=== PATIENT | male | born 1960 | race Caucasian/White ===

== ENCOUNTER 2016-05-06 14:09 | Inpatient (IN) | payer OTHER ==
[~2016-05-06] VITALS: Ht 185.4 cm; Wt 112.0 kg
[~2016-05-06 14:09] MED LIST: Z.0.NO CURRENT MEDS
[2016-05-06 14:12] VITALS: BP 168/90; PULSE 59; RESP 14; TEMP 98.2; O2SAT 98
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
--- NOTE | 2016-05-06 15:37 | RADRPT ---
EXAM DATE/TIME: 05/06/2016 15:26 [facility] COMPARISON: CHEST SINGLE AP, February 23, 2012, 0:11. INDICATIONS : Chest pain. MEDICAL HISTORY : None. SURGICAL HISTORY : None. ENCOUNTER: Initial ACUITY: 1 day PAIN SCORE: 2/10 LOCATION: Bilateral chest FINDINGS: A single view of the chest demonstrates the lungs to be symmetrically aerated with faint patchy asymm etric density airspace disease in the left upper lobe relative to the right CONCLUSION: There is faint airspace disease possibly infiltrate left upper lobe. Peewee Tinsley MD on May 06, 2016 at 15:35 Board Certified Radiologist. This report was verified electronically.
[2016-05-06 15:38] LABS: AUTOMATED NEUTROPHIL # 7.1 TH/MM3 (1.8-7.7); BASOPHIL # 0.1 TH/MM3 (0-0.2); BASOPHIL % 0.6 % (0.0-2.0); EOSINOPHIL # 0.2 TH/MM3 (0-0.4); EOSINOPHIL % 1.5 % (0.0-4.0); HEMATOCRIT 45.8 % (39.0-51.0); HEMO FLAGS DIFF FINAL; LYMPH % 23.1 % (9.0-44.0); LYMPHOCYTE # 2.5 TH/MM3 (1.0-4.8); MEAN CELL VOLUME 87.2 FL (80.0-100.0); MEAN CORPUSCULAR HEMOGLOBIN 29.6 PG (27.0-34.0); MEAN CORPUSCULAR HGB CONC 33.9 % (32.0-36.0); MONO % 8.6 % (0.0-8.0); NEUT % 66.2 % (16.0-70.0); PLATELET COUNT 243 TH/MM3 (150-450); RED BLOOD COUNT 5.25 MIL/MM3 (4.50-5.90); RED CELL DISTRIBUTION WIDTH 12.6 % (11.6-17.2); WHITE BLOOD COUNT 10.7 TH/MM3 (4.0-11.0)
[2016-05-06 15:43] LABS: APTT (PATIENT) 26.3 SEC (24.3-30.1); PROTHROMBIN TIME - PATIENT 10.7 SEC (9.8-11.6)
[2016-05-06 15:57] LABS: ANION GAP 6 MEQ/L (5-15); BICARBONATE 28.8 MEQ/L (21.0-32.0); BLOOD UREA NITROGEN 15 MG/DL (7-18); CHLORIDE 102 MEQ/L (98-107); GLOMERULAR FILTRATION RATE 74 ML/MIN (>89); MAGNESIUM 2.4 MG/DL (1.5-2.5); POTASSIUM 4.2 MEQ/L (3.5-5.1); SODIUM (NA) 137 MEQ/L (136-145)
--- NOTE | 2016-05-06 15:58 | EKG ---
Date Performed: 05/06/2016 Time Performed: 14:47:49 PTAGE: 55 years EKG: Sinus rhythm NORMAL ECG NO PREVIOUS TRACING DOCTOR: Jake Schmidt Interpretating Date/Time 05/06/2016 15:57:13
[2016-05-06 16:00] LABS: CREATINE KINASE 125 U/L (39-308)
[2016-05-06 16:13] LABS: CKMB 1.8 NG/ML (0.5-3.6)
[2016-05-06 19:38] LABS: CREATINE KINASE 117 U/L (39-308)
[2016-05-06] MEDS ORDERED: ENOXAPARIN SODIUM 120 MG/0.8 ML SYRINGE SQ ONE (19:45)
[2016-05-06 19:50] LABS: CKMB 1.5 NG/ML (0.5-3.6)
[2016-05-06] MEDS ORDERED: SODIUM CHLORIDE 0.9% FLUSH 5 ML FLUSH FLUSH PRN (21:00)
[2016-05-06] MEDS: SODIUM CHLORIDE 0.9% FLUSH 5 ML FLUSH FLUSH SCH (21:00)
[2016-05-06] MEDS ORDERED: NALOXONE HCL 0.4 MG/ML AMP IV PRN (21:00)
[2016-05-06 21:02] VITALS: BP 131/81; PULSE 19; RESP 16; O2SAT 98
--- NOTE | 2016-05-06 21:20 | PD ---
Data Data Last Documented VS Vital Signs Date Time Temp Pulse Resp B/P Pulse Ox O2 Delivery O2 Flow Rate FiO2 05/06/16 19:28 54 05/06/16 14:12 98.2 14 168/90 98 Room Air Orders Electrocardiogram (05/06/16 14:52) Basic Metabolic Panel (Bmp) (05/06/16 14:52) Ckmb (Isoenzyme) Profile (05/06/16 14:52) Complete Blood Count With Diff (05/06/16 14:52) Magnesium (Mg) (05/06/16 14:52) Prothrombin Time / Inr (Pt) (05/06/16 14:52) Act Partial Throm Time (Ptt) (05/06/16 14:52) Troponin I (05/06/16 14:52) Lipase (05/06/16 14:52) Chest, Single Ap (05/06/16 14:52) CKMB (05/06/16 15:01) CKMB% (05/06/16 15:01) Electrocardiogram (05/06/16 18:25) Ckmb (Isoenzyme) Profile (05/06/16 18:25) Troponin I (05/06/16 18:25) CKMB (05/06/16 18:51) CKMB% (05/06/16 18:51) Enoxaparin Inj (Lovenox Inj) (05/06/16 19:45) Admit Order (Ed Use Only) (05/06/16 20:51) Admit To Inpatient (05/06/16 ) Vital Signs (Adult) Q4H (05/06/16 20:51) Activity Oob With Assistance (05/06/16 20:51) Tacking Stitch Remover / Telemetry .CONTINUOUS (05/06/16 20:51) Sodium Chloride 0.9% Flush (Ns Flush) (05/06/16 21:00) Sodium Chloride 0.9% Flush (Ns Flush) (05/06/16 21:00) Creatine Kinase (Cpk) (05/07/16 01:00) Creatine Kinase (Cpk) (05/07/16 07:00) Troponin I (05/07/16 01:00) Troponin I (05/07/16 07:00) Electrocardiogram (05/07/16 01:00) Electrocardiogram (05/07/16 07:00) Naloxone Inj (Narcan Inj) (05/06/16 21:00) Inpatient Certification (05/06/16 ) Labs Laboratory Tests Test 05/06/16 05/06/16 15:01 18:51 White Blood Count 10.7 TH/MM3 Red Blood Count 5.25 MIL/MM3 Hemoglobin 15.5 GM/DL Hematocrit 45.8 % Mean Corpuscular Volume 87.2 FL Mean Corpuscular Hemoglobin 29.6 PG Mean Corpuscular Hemoglobin 33.9 % Concent Red Cell Distribution Width 12.6 % Platelet Count 243 TH/MM3 Mean Platelet Volume 7.9 FL Neutrophils (%) (Auto) 66.2 % Lymphocytes (%) (Auto) 23.1 % Monocytes (%) (Auto) 8.6 % Eosinophils (%) (Auto) 1.5 % Basophils (%) (Auto) 0.6 % Neutrophils # (Auto) 7.1 TH/MM3 Lymphocytes # (Auto) 2.5 TH/MM3 Monocytes # (Auto) 0.9 TH/MM3 Eosinophils # (Auto) 0.2 TH/MM3 Basophils # (Auto) 0.1 TH/MM3 CBC Comment DIFF FINAL Differential Comment Prothrombin Time 10.7 SEC Prothromb Time International 1.0 RATIO Ratio Activated Partial 26.3 SEC Thromboplast Time Sodium Level 137 MEQ/L Potassium Level 4.2 MEQ/L Chloride Level 102 MEQ/L Carbon Dioxide Level 28.8 MEQ/L Anion Gap 6 MEQ/L Blood Urea Nitrogen 15 MG/DL Creatinine 1.05 MG/DL Estimat Glomerular Filtration 74 ML/MIN Rate Random Glucose 86 MG/DL Calcium Level 9.4 MG/DL Magnesium Level 2.4 MG/DL Total Creatine Kinase 125 U/L 117 U/L Creatine Kinase MB 1.8 NG/ML 1.5 NG/ML Troponin I 0.02 NG/ML 0.10 NG/ML Lipase 209 U/L [facility] Medical Record Reviewed: Yes Supervised Visit with NAHOMI: Yes Narrative Course I, Dr. Whitney, have reviewed the advance practice practitioner's documentation and am in agreement, met with the patient face to face, made the diagnosis, and the medical decision making was done by me. *My assessment and Findings: The patient has had exertional chest pain with some radiation to the jaw for a few days now. He took aspirin at home. He has a family history of coronary artery disease. CBC & BMP Diagram 1/24/17 15:01 Troponin is 0.10 EKG reveals a sinus rhythm of 71 with normal axis and intervals no sign of acute ischemia the patient will be admitted to the hospitalist service. Discussed with Dr. Valdes. David ordered here. No pain at rest or at time of admission. Diagnosis Primary Impression: Chest pain Qualified Code: R07.9 - Chest pain, unspecified type Additional Impression: Elevated troponin I level Admitting Information Admitting Physician Requests: Observation Scripts No Active Prescriptions or Reported Meds Condition: Stable Jann Whitney MD May 06, 2016 21:19
[2016-05-06 23:30] VITALS: BP 124/94; PULSE 57; RESP 16; O2SAT 94
[2016-05-07] VITALS (10 sets, daily range): BP systolic 113–158; BP diastolic 57–86; PULSE 51–74; RESP 16–19; TEMP 97.4–98.2; O2SAT 94–99
--- NOTE | 2016-05-07 05:44 | EKG ---
Date Performed: 05/06/2016 Time Performed: 18:58:38 PTAGE: 55 years EKG: BASELINE ARTIFACT PRESENT. SINUS BRADYCARDIA POSSIBLE RIGHT VENTRICULAR CONDUCTION DELAY MARIKA RDERLINE ECG NO SIGNIFICANT CHANGE FROM PRIOR ELECTROCARDIOGRAM. PREVIOUS TRACING : 05/06/2016 14.47 DOCTOR: Jake Schmidt Interpretating Date/Time 05/07/2016 05:42:07
[2016-05-07] MEDS: ASPIRIN EC 325 MG TABEC PO SCH (08:06)
[2016-05-07] MEDS: SODIUM CHLORIDE 0.9% FLUSH 5 ML FLUSH FLUSH SCH ×2 (08:07→21:16)
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
[2016-05-07] MEDS ORDERED: NITROGLYCERIN 0.4 MG SL 25 TABS/BTL SL PRN (12:15)
[2016-05-07] MEDS ORDERED: ACETAMINOPHEN 325 MG TAB PO PRN (12:15)
[2016-05-07] MEDS ORDERED: LORazepam 2 MG/ML VIAL IV PUSH PRN ×4 (12:15→13:00)
[2016-05-07] MEDS ORDERED: HALOPERIDOL LACTATE 5 MG/ML AMP IM PRN (12:15)
[2016-05-07] MEDS ORDERED: MORPHINE SULFATE 4 MG/ML INJ IV PRN (12:15)
[2016-05-07] MEDS ORDERED: DOCUSATE SODIUM 100 MG CAP PO PRN (12:15)
[2016-05-07] MEDS ORDERED: ACETAMINOPHEN/HYDROcodone 325 MG/5 MG TAB PO PRN (12:15)
[2016-05-07] MEDS ORDERED: ONDANSETRON HCL 4 MG/2 ML VIAL IVP PRN (12:15)
[2016-05-07] MEDS ORDERED: LORazepam 2 MG TAB PO PRN (12:15)
[2016-05-07] MEDS ORDERED: LORazepam 1 MG TAB PO PRN (13:00)
[2016-05-07] MEDS ORDERED: FLUMAZENIL 0.5 MG/5 ML VIAL IV PUSH PRN (13:00)
--- NOTE | 2016-05-07 14:17 | EKG ---
Date Performed: 05/07/2016 Time Performed: 06:20:58 PTAGE: 55 years EKG: SINUS BRADYCARDIA WITH SINUS ARRHYTHMIA BORDERLINE ECG PREVIOUS TRACING : 05/07/2016 01.16 Since previous tracing, no significant change noted DOCTOR: Vineet Sharma Interpretating Date/Time 05/07/2016 14:16:52
--- NOTE | 2016-05-07 14:18 | EKG ---
Date Performed: 05/07/2016 Time Performed: 01:16:17 PTAGE: 55 years EKG: SINUS BRADYCARDIA BORDERLINE ECG PREVIOUS TRACING : 05/06/2016 18.58 Since previous tracing, no significant change noted DOCTOR: Vineet Sharma Interpretating Date/Time 05/07/2016 14:17:35
[2016-05-07] MEDS ORDERED: ENOXAPARIN SODIUM 40 MG/0.4 ML SYRINGE SQ SCH (20:00)
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
[2016-05-08] VITALS (10 sets, daily range): BP systolic 134–140; BP diastolic 75–94; PULSE 67–86; RESP 18–20; TEMP 96–97.8; O2SAT 96–98
[2016-05-08] MEDS: SODIUM CHLORIDE 0.9% FLUSH 5 ML FLUSH FLUSH SCH ×2 (09:00→19:57)
[2016-05-08] MEDS ORDERED: REGADENOSON INJ 0.4 MG/5 ML SYR ONE (09:46)
[2016-05-08] MEDS: ASPIRIN EC 325 MG TABEC PO SCH (11:00)
[2016-05-08] MEDS: MULTIVITAMINS/MINERALS THERAPEUTIC TAB PO SCH (11:01)
[2016-05-08] MEDS: FOLIC ACID 1 MG TAB PO SCH (11:01)
[2016-05-08] MEDS: THIAMINE HCL 100 MG TAB PO SCH (11:01)
--- NOTE | 2016-05-08 11:24 | HHI.PR ---
Subjective Remarks Follow-up for chest pain. SO at bedside. The patient denies any further chest pains overnight, but did report that he had a twinge of chest discomfort during the stress test today. Some shortness of breath with previous episodes of chest pain, none today or overnight. Awaiting stress test results at this time. Objective Vitals Vital Signs Date Time Temp Pulse Resp B/P Pulse Ox O2 Delivery O2 Flow Rate FiO2 05/08/16 08:02 96.0 71 18 134/79 98 05/08/16 08:00 70 05/08/16 04:48 97.8 75 18 139/88 96 05/08/16 00:22 97.8 86 18 140/75 97 05/07/16 20:00 74 05/07/16 19:03 97.6 54 18 142/85 97 05/07/16 15:50 98.0 53 19 123/73 94 05/07/16 11:58 97.4 57 16 127/74 98 I/O 05/07/16 05/07/16 05/07/16 05/08/16 05/08/16 05/08/16 07:00 15:00 23:00 07:00 15:00 23:00 Intake Total 10 ml Balance 10 ml Intake Oral 10 ml # Voids 2 1 Result Diagram: 05/06/16 1501 05/06/16 1501 Imaging Last Impressions Chest X-Ray 05/06/16 1452 Signed Impressions: Service Date/Time: Friday, May 06, 2016 15:26 - CONCLUSION: There is faint airspace disease possibly infiltrate left upper lobe. Peewee Tinsley MD Objective Remarks GENERAL: Well-developed well-nourished. In no acute distress. SKIN: Warm and dry. No lesions noted. HEENT: Normocephalic. Pupils equal and round. Mucous membranes pink and moist. CARDIOVASCULAR: Regular rate and rhythm. No murmur appreciated. RESPIRATORY: No accessory muscle use. Clear to auscultation. Breath sounds equal bilaterally. GASTROINTESTINAL: Abdomen soft, non-tender, nondistended. Bowel sounds x4. MUSCULOSKELETAL: No obvious deformities. No clubbing or cyanosis. No edema. NEUROLOGICAL: Awake and alert. No focal neurological deficits. Moves upper and lower extremities spontaneously. Normal speech. PSYCHIATRIC: Appropriate mood and affect; insight and judgment normal. A/P Problem List: (1) Chest pain ICD Code: R07.9 Status: Acute (2) Elevated troponin I level ICD Code: R79.89 Status: Acute Assessment and Plan 55-year-old male with no significant past medical history, cigar smoker, marijuana use, and alcohol use, does not follow with a PCP, presents with ongoing intermittent chest pains over the past 1.5 years, worse over the past 2 weeks. Chest Pain, Elevated Troponins, NSTEMI: Troponins trended 0.02, 0.10, 0.04, 0.02. EKG without acute ST-T changes. S/p full strength Lovenox in the ED. Started on aspirin 325mg daily. Nitro prn and IV Morphine prn. O2 prn. Cannot initiate Beta Guy due to bradycardia. Check Lipid Panel. Consulted cardiology, ordered stress test, results pending. Discussed with Dr. Baltazar, catheterization later today if indicated. Tobacco Use: Cessation counseling. Patient smokes 1 cigar daily but can go multiple days without. Avoid nicotine secondary to vasoconstriction. Alcohol Use: Cessation counseling. Continue thiamine/folate/MV. CIWA protocol. Marijuana Use: counseled on cessation. DVT Prophylaxis: teds/SCDs Discharge Planning Disposition pending clinical course. Problem Qualifiers (1) Chest pain: Qualified Code: R07.9 - Chest pain, unspecified type Wilver Kerr May 08, 2016 11:24 Gabbie Snider MD May 08, 2016 15:52
--- NOTE | 2016-05-08 11:29 | RADRPT ---
EXAM DATE/TIME: 05/08/2016 08:49 [facility] COMPARISON: No previous studies available for comparison. INDICATIONS : Mid chest pain radiating to the jaw for two weeks. Coronary artery disease. DOSE: 29.8 mCi Tc99m Myoview at stress. 10 mCi Tc99m Myoview at rest. 0.4 mg Lexiscan STRESS SYMPTOMS: Headache, flush, abdominal cramps and sweating. EJECTION FRACTION: 58% MEDICAL HISTORY : Hypertension. SURGICAL HISTORY : Appendectomy. ENCOUNTER: Initial ACUITY: 2 weeks PAIN SCALE: 5/10 LOCATION: Midsternal chest TECHNIQUE: The patient underwent pharmacologic stress with infusion of prescribed dose. Continuous ECG tracing was monitored during stress. Gated SPECT imaging was performed after stress and conventional SPECT i maging was performed at rest. The examination was performed on a SPECT/CT scanner, both attenuation and non-corrected datasets were reviewed. FINDINGS: DISTRIBUTION: The maximum perfused segment at stress is in the anterolateral wall. PERFUSION STUDY: The pattern of perfusion at stress shows 20-30% redistribution in the inferoseptal distribution warren rning for ischemia. GATED STUDY: There is intact wall motion and thickening without hypokinetic or dyskinetic segments. CONCLUSION: 1. Scintigraphic findings concerning for inferoseptal ischemia extending into the apex. Assuming righ t coronary dominance, findings would be characteristic of a high-grade RCA lesion. 2. Adequate wall motion throughout with an estimated ejection fraction of 58%. RISK CATEGORY: Intermediate (1-3% Annual Mortality Rate) Alexander Beatty MD on May 08, 2016 at 11:23 Board Certified Radiologist. This report was verified electronically.
--- NOTE | 2016-05-08 11:46 | PD.CARD.PN ---
Subjective Subjective Remarks No chest pain over night, no shortness of breath Objective Medications Current Medications Medications (Trade) Dose Ordered Sig/Mariana Route Start Time Stop Time Status Last Admin (NS Flush) 2 ml UNSCH PRN FLUSH 05/06/16 21:00 (NS Flush) 2 ml BID FLUSH 05/06/16 21:00 05/08/16 09:00 (Narcan Inj) 0.4 mg UNSCH PRN IV 05/06/16 21:00 (Ecotrin Ec) 325 mg DAILY PO 05/07/16 09:00 05/08/16 11:00 (Nitrostat Sl) 0.4 mg Q5M PRN SL 05/07/16 12:15 (Zofran Inj) 4 mg Q6H PRN IVP 05/07/16 12:15 (Colace) 100 mg Q12H PRN PO 05/07/16 12:15 (Tylenol) 650 mg Q6H PRN PO 05/07/16 12:15 ([place] 5-325 Mg) 1 tab Q4H PRN PO 05/07/16 12:15 (Morphine Inj) 2 mg Q3H PRN IV 05/07/16 12:15 (Folate) 1 mg DAILY PO 05/08/16 09:00 05/13/16 08:59 05/08/16 11:01 (Vitamin B1) 100 mg DAILY PO 05/08/16 09:00 05/08/16 11:01 (Theragran M Tab) 1 tab DAILY PO 05/08/16 09:00 05/13/16 08:59 05/08/16 11:01 (Ativan) 1 mg Q4H PRN PO 05/07/16 13:00 (Ativan Inj) 1 mg Q4H PRN IV PUSH 05/07/16 13:00 (Ativan) 2 mg Q2H PRN PO 05/07/16 12:15 (Ativan Inj) 2 mg Q2H PRN IV PUSH 05/07/16 12:15 (Ativan Inj) 2 mg Q1H PRN IV PUSH 05/07/16 12:15 (Ativan Inj) 2 mg Q15M PRN IV PUSH 05/07/16 12:15 (Haldol Inj) 2 mg Q15M PRN IM 05/07/16 12:15 (Lovenox Inj) 40 mg Q24H SQ 05/07/16 20:00 05/07/16 21:16 Vital Signs / I&O Vital Signs Date Time Temp Pulse Resp B/P Pulse Ox O2 Delivery O2 Flow Rate FiO2 05/08/16 08:02 96.0 71 18 134/79 98 05/08/16 08:00 70 05/08/16 04:48 97.8 75 18 139/88 96 05/08/16 00:22 97.8 86 18 140/75 97 05/07/16 20:00 74 05/07/16 19:03 97.6 54 18 142/85 97 05/07/16 15:50 98.0 53 19 123/73 94 05/07/16 11:58 97.4 57 16 127/74 98 I/O 05/07/16 05/07/16 05/07/16 05/08/16 05/08/16 05/08/16 07:00 15:00 23:00 07:00 15:00 23:00 Intake Total 10 ml Balance 10 ml Intake Oral 10 ml # Voids 2 1 Physical Exam GENERAL: NAD SKIN: Warm and dry. HEAD: Atraumatic. Normocephalic. EYES: Pupils equal and round. No scleral icterus. No injection or drainage. ENT: No nasal bleeding or discharge. Mucous membranes pink and moist. NECK: Trachea midline. No JVD. CARDIOVASCULAR: Regular rate and rhythm. RESPIRATORY: No accessory muscle use. Clear to auscultation. Breath sounds equal bilaterally. GASTROINTESTINAL: Abdomen soft, non-tender, nondistended. Hepatic and splenic margins not palpable. MUSCULOSKELETAL: Extremities without clubbing, cyanosis, or edema. No obvious deformities. NEUROLOGICAL: Awake and alert. No obvious cranial nerve deficits. Motor grossly within normal limits. Five out of 5 muscle strength in the arms and legs. Normal speech. PSYCHIATRIC: Appropriate mood and affect; insight and judgment normal. Laboratory Current Medications Medications (Trade) Dose Ordered Sig/Mariana Route Start Time Stop Time Status Last Admin (Narcan Inj) 0.4 mg UNSCH PRN IV 05/06/16 21:00 (Ecotrin Ec) 325 mg DAILY PO 05/07/16 09:00 05/08/16 11:00 (Nitrostat Sl) 0.4 mg Q5M PRN SL 05/07/16 12:15 (Zofran Inj) 4 mg Q6H PRN IVP 05/07/16 12:15 (Colace) 100 mg Q12H PRN PO 05/07/16 12:15 (Tylenol) 650 mg Q6H PRN PO 05/07/16 12:15 ([place] 5-325 Mg) 1 tab Q4H PRN PO 05/07/16 12:15 (Morphine Inj) 2 mg Q3H PRN IV 05/07/16 12:15 (Folate) 1 mg DAILY PO 05/08/16 09:00 05/13/16 08:59 05/08/16 11:01 (Vitamin B1) 100 mg DAILY PO 05/08/16 09:00 05/08/16 11:01 (Theragran M Tab) 1 tab DAILY PO 05/08/16 09:00 05/13/16 08:59 05/08/16 11:01 (Ativan) 1 mg Q4H PRN PO 05/07/16 13:00 (Ativan Inj) 1 mg Q4H PRN IV PUSH 05/07/16 13:00 (Ativan) 2 mg Q2H PRN PO 05/07/16 12:15 (Ativan Inj) 2 mg Q2H PRN IV PUSH 05/07/16 12:15 (Ativan Inj) 2 mg Q1H PRN IV PUSH 05/07/16 12:15 (Ativan Inj) 2 mg Q15M PRN IV PUSH 05/07/16 12:15 (Haldol Inj) 2 mg Q15M PRN IM 05/07/16 12:15 (Lovenox Inj) 40 mg Q24H SQ 05/07/16 20:00 05/07/16 21:16 Assessment and Plan Problem List: (1) Elevated troponin I level (2) Chest pain Assessment and Plan 1) Minimally elevated troponin, chest pain 2) Abnormal stress test with inferior ischemia, for cardiac catheterization today Problem Qualifiers (1) Chest pain: Qualified Code: R07.9 - Chest pain, unspecified type Greg Whitney DO May 08, 2016 11:45
[2016-05-08] MEDS ORDERED: HEPARIN-NS/PF INJ 500 ML ONE ×2 (13:03→13:55)
[2016-05-08] MEDS ORDERED: HEPARIN SODIUM - IV 10,000 UNITS/10 ML VIAL ONE (13:04)
[2016-05-08] MEDS ORDERED: NITROGLYCERIN INJ 5 ML ONE (13:04)
[2016-05-08] MEDS ORDERED: VERAPAMIL HCL 5 MG/2 ML VIAL ONE (13:04)
[2016-05-08] MEDS ORDERED: MIDAZOLAM HCL 2 MG/2 ML VIAL ONE ×2 (13:09→14:33)
[2016-05-08] MEDS ORDERED: IOHEXOL 350 MG/ML 100 ML BTL (for Cath Lab) OTHER ONE (13:22)
[2016-05-08] MEDS ORDERED: TICAGRELOR 90 MG TAB PO ONE (14:59)
[2016-05-08] MEDS ORDERED: SODIUM CHLORIDE 0.9% FLUSH 5 ML FLUSH IVF PRN (15:30)
[2016-05-08] MEDS ORDERED: ACETAMINOPHEN 325 MG TAB PO PRN (15:30)
[2016-05-08] MEDS ORDERED: MISC INFORMATION XX ONE (15:30)
[2016-05-08] MEDS ORDERED: oxyCODONE/ACETAMINOPHEN 5 MG/325 MG TAB PO PRN (15:30)
--- NOTE | 2016-05-08 16:01 | HHI.PR ---
Subjective Remarks Seen briefly in the morning going to stress test Seen again after cath today in DOCU Patient is in nad. Says she doesn't have any chest pain. No n/v/d/c. Objective Vitals Vital Signs Date Time Temp Pulse Resp B/P Pulse Ox O2 Delivery O2 Flow Rate FiO2 05/08/16 11:41 97.8 71 20 140/88 97 05/08/16 08:02 96.0 71 18 134/79 98 05/08/16 08:00 70 05/08/16 04:48 97.8 75 18 139/88 96 05/08/16 00:22 97.8 86 18 140/75 97 05/07/16 20:00 74 05/07/16 19:03 97.6 54 18 142/85 97 I/O 05/07/16 05/07/16 05/07/16 05/08/16 05/08/16 05/08/16 07:00 15:00 23:00 07:00 15:00 23:00 Intake Total 10 ml Balance 10 ml Intake Oral 10 ml # Voids 2 1 Result Diagram: 05/06/16 1501 05/06/16 1501 Imaging Last Impressions Myocardial Perfusion Scan Nuc Med 05/08/16 0000 Signed Impressions: Service Date/Time: April 08:49 - CONCLUSION: 1. Scintigraphic findings concerning for inferoseptal ischemia extending into the apex. Assuming right coronary dominance, findings would be characteristic of a high-grade RCA lesion. 2. Adequate wall motion throughout with an estimated ejection fraction of 58%%. RISK CATEGORY: Intermediate (1-3%% Annual Mortality Rate) Alexander Beatty MD Chest X-Ray 05/06/16 1452 Signed Impressions: Service Date/Time: Friday, May 06, 2016 15:26 - CONCLUSION: There is faint airspace disease possibly infiltrate left upper lobe. Peewee Tinsley MD Objective Remarks GENERAL: Well-developed well-nourished. In no acute distress. SKIN: Warm and dry. No lesions noted. HEENT: Normocephalic. Pupils equal and round. Mucous membranes pink and moist. CARDIOVASCULAR: Regular rate and rhythm. No murmur appreciated. RESPIRATORY: No accessory muscle use. Clear to auscultation. Breath sounds equal bilaterally. GASTROINTESTINAL: Abdomen soft, non-tender, nondistended. Bowel sounds x4. MUSCULOSKELETAL: Right wrist. No obvious deformities. No clubbing or cyanosis. No edema. NEUROLOGICAL: Awake and alert. No focal neurological deficits. Moves upper and lower extremities spontaneously. Normal speech. PSYCHIATRIC: Appropriate mood and affect; insight and judgment normal. A/P Problem List: (1) Chest pain ICD Code: R07.9 Status: Acute (2) Elevated troponin I level ICD Code: R79.89 Status: Acute Assessment and Plan 55-year-old male with no significant past medical history, cigar smoker, marijuana use, and alcohol use, does not follow with a PCP, presents with ongoing intermittent chest pains over the past 1.5 years, worse over the past 2 weeks. Chest Pain, Elevated Troponins, NSTEMI: Troponins trended 0.02, 0.10, 0.04, 0.02. EKG without acute ST-T changes. S/p full strength Lovenox in the ED. Started on aspirin 325mg daily. Nitro prn and IV Morphine prn. O2 prn. Cannot initiate Beta Guy due to bradycardia. Check Lipid Panel. Consulted cardiology, patient had abnormal stress test and went for cath today. Discussed with Dr. Baltazar says he had 2 lesions with 2 stents placed, op report pending. Patient needs ASA and brillinta. Tobacco Use: Cessation counseling. Patient smokes 1 cigar daily but can go multiple days without. Avoid nicotine secondary to vasoconstriction. Alcohol Use: Cessation counseling. Continue thiamine/folate/MV. CIWA protocol. Marijuana Use: counseled on cessation. DVT Prophylaxis: teds/SCDs Discharge Planning Poss DC tomorrow if stable. Discussed with the patient, significant other at bedside, nurse, Dr Way cardiology, Wilver HARDWICK Problem Qualifiers (1) Chest pain: Qualified Code: R07.9 - Chest pain, unspecified type Gabbie Snider MD May 08, 2016 16:01
--- NOTE | 2016-05-08 17:17 | EC ---
Study Study Date:05/08/2016 STUDY CONCLUSIONS SUMMARY - Left ventricle: The cavity size was normal. Wall thickness was normal. Systolic function was normal. The estimated ejection fraction was in the range of 55% to 60%. Wall motion was normal; there were no regional wall motion abnormalities. - Aortic valve: Valve area: 2.46cm^2 (Vmax). - Tricuspid valve: Mild regurgitation. If LV function is below 40, please consider prescribing an ACEI or ARB or document rationale for non-use. PROCEDURE DATA STUDY STATUS: Elective. Procedure: Transthoracic echocardiography. Image quality was good. Scanning was performed from the parasternal, apical, and subcostal acoustic windows. Study completion: The patient tolerated the procedure well. Transthoracic echocardiography. M-mode, complete 2D, complete spectral Doppler, and color Doppler. Height: Height: 73in. Weight: Weight: 245.5lb. Body mass index: BMI: 32.5kg/m^2. Body surface area: BSA: 2.35m^2. Patient status: Inpatient. CARDIAC ANATOMY LEFT VENTRICLE: The cavity size was normal. Wall thickness was normal. Systolic function was normal. The estimated ejection fraction was in the range of 55% to 60%. Wall motion was normal; there were no regional wall motion abnormalities. AORTIC VALVE: Trileaflet; normal thickness leaflets. Doppler: Transvalvular velocity was within the normal range. There was no stenosis. No regurgitation. Valve area: 2.46cm^2 (Vmax). Indexed valve area: 1.05cm^2/m^2 (Vmax). AORTA: Aortic root: The aortic root was normal in size. MITRAL VALVE: Structurally normal valve. Doppler: Transvalvular velocity was within the normal range. There was no evidence for stenosis. No regurgitation. LEFT ATRIUM: The atrium was normal in size. RIGHT VENTRICLE: The cavity size was normal. Wall thickness was normal. PULMONIC VALVE: Doppler: Transvalvular velocity was within the normal range. There was no evidence for stenosis. No regurgitation. TRICUSPID VALVE: Structurally normal valve. Doppler: Transvalvular velocity was within the normal range. Mild regurgitation. PULMONARY ARTERY: The main pulmonary artery was normal-sized. Systolic pressure was within the normal range. RIGHT ATRIUM: The atrium was normal in size. PERICARDIUM: There was no pericardial effusion. SYSTEMIC VEINS: Inferior vena cava: The vessel was normal in size. Patient weight: 245.5lb _Ejection fraction:_ 65-75% _Fractional shortening:_ 32% up to 5Kg 5-11.5Kg 11.6-22.9Kg 23-45Kg 45-57Kg Aortic Root 7-13 <17 13-22 17-27 17-27 LA diam 6-13 <23 24-38 33-47 37-40 RVID 10-17 7-15 7-15 7-18 8-17 LVIDd 12-22 <32 24-38 33-47 37-40 LVPW 2-4 3-6 5-7 6-8 7-8 IVS 2-4 3-6 5-7 6-8 7-8 BASIC MEASUREMENTS ADULT NORMAL Left ventricle LV internal dimension, ED, chordal *37.3 mm 43-52 level, PLAX LV internal dimension, ES, chordal 28.6 mm 23-38 level, PLAX Fractional shortening, chordal level, *23 % >29 PLAX LV posterior wall thickness, ED 8.99 mm IVS/LVPW ratio, ED 0.97 <1.3 Ventricular septum Septal thickness, ED 8.7 mm Aortic valve Leaflet separation 20 mm 15-26 BASIC MEASUREMENTS ADULT NORMAL Aortic valve Leaflet separation 20 mm 15-26 Aorta Root diameter, ED 26 mm 20-37 Left atrium Anterior-posterior dimension, ES 39 mm 19-40 Anterior-posterior dimension index, ES 1.66 cm/m^2 <2.2 LA/aortic root ratio 1.5 DOPPLER MEASUREMENTS ADULT NORMAL Main pulmonary artery Pressure, S 19 mm Hg =30 Aortic valve Peak velocity, S 77.4 cm/s Valve area, Vmax 2.46 cm^2 Valve area index, Vmax 1.05 cm^2/m^2 Mitral valve Peak E-wave velocity 47.4 cm/s Peak A-wave velocity 66.6 cm/s Deceleration time 201 ms 150-230 Peak E/A ratio 0.7 Tricuspid valve Regurgitant peak velocity 170 cm/s Peak RV-RA gradient, S 12 mm Hg Maximal regurgitant velocity 170 cm/s Systemic veins Estimated CVP 10 mm Hg Right ventricle RV pressure, S 22 mm Hg <30 Pulmonic valve Peak velocity, S 85.5 cm/s LEGEND: Mean values are shown as u=mean value. Asterisk (*) smyth values outside specified normal range. Prepared and signed by Estuardo Ackerman [id number]
[2016-05-08] MEDS: SODIUM CHLORIDE 0.9% FLUSH 5 ML FLUSH IVF SCH (19:58)
[2016-05-08] MEDS: TICAGRELOR 90 MG TAB PO SCH (20:07)
[2016-05-09] VITALS (7 sets, daily range): BP systolic 134–144; BP diastolic 77–99; PULSE 51–70; RESP 17; TEMP 97.7; O2SAT 96–99
[2016-05-09 06:46] LABS: AUTOMATED NEUTROPHIL # 5.3 TH/MM3 (1.8-7.7); BASOPHIL % 0.5 % (0.0-2.0); EOSINOPHIL # 0.2 TH/MM3 (0-0.4); EOSINOPHIL % 2.5 % (0.0-4.0); HEMATOCRIT 43.2 % (39.0-51.0); HEMO FLAGS DIFF FINAL; LYMPH % 23.6 % (9.0-44.0); MEAN CELL VOLUME 87.3 FL (80.0-100.0); MEAN CORPUSCULAR HEMOGLOBIN 29.9 PG (27.0-34.0); MEAN CORPUSCULAR HGB CONC 34.3 % (32.0-36.0); MONO % 11.8 % (0.0-8.0); NEUT % 61.6 % (16.0-70.0); PLATELET COUNT 205 TH/MM3 (150-450); RED BLOOD COUNT 4.95 MIL/MM3 (4.50-5.90); RED CELL DISTRIBUTION WIDTH 12.9 % (11.6-17.2); WHITE BLOOD COUNT 8.5 TH/MM3 (4.0-11.0)
--- NOTE | 2016-05-09 08:32 | HHI.PR ---
Subjective Remarks Feels much better. No chest pain or sob. No n/v/d/c. Objective Vitals Vital Signs Date Time Temp Pulse Resp B/P Pulse Ox O2 Delivery O2 Flow Rate FiO2 05/09/16 07:00 70 05/09/16 04:28 63 144/99 96 05/09/16 04:00 51 05/09/16 03:00 58 05/09/16 01:00 57 05/09/16 00:00 97.7 69 142/77 98 05/08/16 23:00 69 05/08/16 22:00 76 05/08/16 21:00 72 05/08/16 20:00 77 05/08/16 20:00 67 140/94 97 05/08/16 19:00 67 05/08/16 11:41 97.8 71 20 140/88 97 I/O 05/08/16 05/08/16 05/08/16 05/09/16 05/09/16 05/09/16 07:00 15:00 23:00 07:00 15:00 23:00 Intake Total 240 ml Balance 240 ml Intake Oral 240 ml # Voids 1 4 Result Diagram: 05/09/16 0523 05/06/16 1501 Imaging Last Impressions Myocardial Perfusion Scan Nuc Med 05/08/16 0000 Signed Impressions: Service Date/Time: April 08:49 - CONCLUSION: 1. Scintigraphic findings concerning for inferoseptal ischemia extending into the apex. Assuming right coronary dominance, findings would be characteristic of a high-grade RCA lesion. 2. Adequate wall motion throughout with an estimated ejection fraction of 58%%. RISK CATEGORY: Intermediate (1-3%% Annual Mortality Rate) Alexander Beatty MD Chest X-Ray 05/06/16 1452 Signed Impressions: Service Date/Time: Friday, May 06, 2016 15:26 - CONCLUSION: There is faint airspace disease possibly infiltrate left upper lobe. Peewee Tinsley MD Objective Remarks GENERAL: Well-developed well-nourished. In no acute distress. SKIN: Warm and dry. No lesions noted. HEENT: Normocephalic. Pupils equal and round. Mucous membranes pink and moist. CARDIOVASCULAR: Regular rate and rhythm. No murmur appreciated. RESPIRATORY: No accessory muscle use. Clear to auscultation. Breath sounds equal bilaterally. GASTROINTESTINAL: Abdomen soft, non-tender, nondistended. Bowel sounds x4. MUSCULOSKELETAL: Right wrist. No obvious deformities. No clubbing or cyanosis. No edema. NEUROLOGICAL: Awake and alert. No focal neurological deficits. Moves upper and lower extremities spontaneously. Normal speech. PSYCHIATRIC: Appropriate mood and affect; insight and judgment normal. A/P Problem List: (1) Chest pain ICD Code: R07.9 Status: Acute (2) Elevated troponin I level ICD Code: R79.89 Status: Acute Assessment and Plan 55-year-old male with no significant past medical history, cigar smoker, marijuana use, and alcohol use, does not follow with a PCP, presents with ongoing intermittent chest pains over the past 1.5 years, worse over the past 2 weeks. Chest Pain, Elevated Troponins, NSTEMI: Troponins trended 0.02, 0.10, 0.04, 0.02. EKG without acute ST-T changes. S/p full strength Lovenox in the ED. Started on aspirin 325mg daily. Nitro prn and IV Morphine prn. O2 prn. Cannot initiate Beta Guy due to bradycardia. Check Lipid Panel. Consulted cardiology, patient had abnormal stress test and went for cath today. Discussed with Dr. Baltazar says he had 2 lesions with 2 stents placed, op report pending. Patient needs ASA and brillinta. 2D ECHO with EF of 55-60% Tobacco Use: Cessation counseling. Patient smokes 1 cigar daily but can go multiple days without. Avoid nicotine secondary to vasoconstriction. Alcohol Use: Cessation counseling. Continue thiamine/folate/MV. CIWA protocol. Marijuana Use: counseled on cessation. DVT Prophylaxis: teds/SCDs Discharge Planning Poss DC tomorrow if stable. Discussed with the patient, significant other at bedside, nurse, Dr Way cardiology Seen by Dr Way cardiology cleared the patient for DC Problem Qualifiers (1) Chest pain: Qualified Code: R07.9 - Chest pain, unspecified type Gabbie Snider MD May 09, 2016 08:32
--- NOTE | 2016-05-09 08:32 | HHI.DS ---
Discharge Summary Admission Date May 06, 2016 at 20:53 Discharge Date: May 09, 2016 Admitting Diagnosis Tn 0.10, CP (1) Chest pain ICD Code: R07.9 (2) Elevated troponin I level ICD Code: R79.89 Procedures none Brief History - From Admission 55-year-old male with no significant past medical history, cigar smoker, marijuana use, and alcohol use, does not follow with a PCP, presents with ongoing intermittent chest pains over the past 1.5 years, worse over the past 2 weeks. The patient describes recently the chest pains will start in his jaw/ neck, then radiate down the center of his chest substernally, described as sharp achy 6/10 pains associated with profuse diaphoresis, palpitations and mild shortness of breath, no nausea/vomiting. He states the pain can come on at any time however it is mostly with exertion, will last for 1530 minutes, then goes away with rest. Yesterday the pain was the worse it has ever been and lasted longer. His friend gave him some aspirin without any significant relief, therefore he agreed to come to the ER. He denies any recent fever/ chills, cough, congestion, or sore throat. He smokes 1 cigar daily, started in his 30s. He drinks 3 alcoholic beverages daily, either beer or liquor. Denies any problem with alcohol withdrawal. He smokes marijuana approximately 5 times per week. Adamantly denies any cocaine use or other illicit drug use. His father started having heart disease around age 65, had a stent placed, then a CABG around age 70. He has uncles with heart disease, brother with high cholesterol. Patient has never had any cardiac workup that he can recall. He has no other medical complaints at this time. He is currently chest pain-free. CBC/BMP: 05/09/16 0523 05/06/16 1501 Significant Findings Laboratory Tests Test 05/06/16 05/06/16 05/09/16 15:01 18:51 05:23 Monocytes (%) (Auto) 8.6 % (0.0-8.0) 11.8 % (0.0-8.0) Estimat Glomerular Filtration 74 ML/MIN (>89) Rate Troponin I 0.10 NG/ML (0.02-0.05) Monocytes # (Auto) 1.0 TH/MM3 (0-0.9) Imaging Last Impressions Myocardial Perfusion Scan Nuc Med 05/08/16 0000 Signed Impressions: Service Date/Time: April 08:49 - CONCLUSION: 1. Scintigraphic findings concerning for inferoseptal ischemia extending into the apex. Assuming right coronary dominance, findings would be characteristic of a high-grade RCA lesion. 2. Adequate wall motion throughout with an estimated ejection fraction of 58%%. RISK CATEGORY: Intermediate (1-3%% Annual Mortality Rate) Alexander Beatty MD Chest X-Ray 05/06/16 1452 Signed Impressions: Service Date/Time: Friday, May 06, 2016 15:26 - CONCLUSION: There is faint airspace disease possibly infiltrate left upper lobe. Peewee Tinsley MD PE at Discharge GENERAL: Well-developed well-nourished. In no acute distress. SKIN: Warm and dry. No lesions noted. HEENT: Normocephalic. Pupils equal and round. Mucous membranes pink and moist. CARDIOVASCULAR: Regular rate and rhythm. No murmur appreciated. RESPIRATORY: No accessory muscle use. Clear to auscultation. Breath sounds equal bilaterally. GASTROINTESTINAL: Abdomen soft, non-tender, nondistended. Bowel sounds x4. MUSCULOSKELETAL: Right wrist. No obvious deformities. No clubbing or cyanosis. No edema. NEUROLOGICAL: Awake and alert. No focal neurological deficits. Moves upper and lower extremities spontaneously. Normal speech. PSYCHIATRIC: Appropriate mood and affect; insight and judgment normal. Hospital Course 55-year-old male with no significant past medical history, cigar smoker, marijuana use, and alcohol use, does not follow with a PCP, presents with ongoing intermittent chest pains over the past 1.5 years, worse over the past 2 weeks. Chest Pain, Elevated Troponins, NSTEMI: Troponins trended 0.02, 0.10, 0.04, 0.02. EKG without acute ST-T changes. S/p full strength Lovenox in the ED. Started on aspirin 325mg daily. Nitro prn and IV Morphine prn. O2 prn. Cannot initiate Beta Guy due to bradycardia. Check Lipid Panel. Consulted cardiology, patient had abnormal stress test and went for cath today. Discussed with Dr. Baltazar says he had 2 lesions with 2 stents placed, op report pending. Patient needs ASA and brillinta. 2D ECHO with EF of 55-60% Tobacco Use: Cessation counseling. Patient smokes 1 cigar daily but can go multiple days without. Avoid nicotine secondary to vasoconstriction. Alcohol Use: Cessation counseling. Continue thiamine/folate/MV. CIWA protocol. Marijuana Use: counseled on cessation. DVT Prophylaxis: teds/SCDs Discharge Planning Poss DC tomorrow if stable. Discussed with the patient, significant other at bedside, nurse, Dr Way cardiology Patient improved cleared for DC by cardiology, to follow up as OP with PCP and consultants Pt Condition on Discharge: Fair Discharge Disposition: Discharge Home Discharge Time: <= 30 minutes Discharge Instructions DIET: Follow Instructions for: Heart Healthy Diet Activities you can perform: Regular-No Restrictions Follow up Referrals: Cardiology - 3-5 Days with Greg Whitney DO PCP Follow-up - 2-3 Days New Medications: Aspirin (Aspirin) 81 Mg Chew 81 MG CHEW DAILY Blood Clot Prevention #30 Ref 0 TAB Nitroglycerin SL (Nitrostat SL) 0.4 Mg Subl 0.4 MG SL Q5M PRN ANGINA #30 CAPLET Thiamine (Vitamin B-1) 100 Mg Tab 100 MG PO DAILY vit #30 TAB Ticagrelor (Brilinta) 90 Mg Tab 90 MG PO BID Blood Clot Prevention #60 TAB Gabbie Snider MD May 09, 2016 08:32
[2016-05-09] MEDS ORDERED: ASPI81CH CHEW (08:34)
[2016-05-09] MEDS ORDERED: NITR0.4S SL (08:34)
[2016-05-09] MEDS ORDERED: BRIL90TA PO (08:34)
[2016-05-09] MEDS ORDERED: VITA100T2 PO (08:34)
[2016-05-09] MEDS: THIAMINE HCL 100 MG TAB PO SCH (08:36)
[2016-05-09] MEDS: TICAGRELOR 90 MG TAB PO SCH (08:37)
[2016-05-09] MEDS: MULTIVITAMINS/MINERALS THERAPEUTIC TAB PO SCH (08:37)
[2016-05-09] MEDS: FOLIC ACID 1 MG TAB PO SCH (08:37)
[2016-05-09] MEDS: SODIUM CHLORIDE 0.9% FLUSH 5 ML FLUSH FLUSH SCH (08:39)
[2016-05-09] MEDS: SODIUM CHLORIDE 0.9% FLUSH 5 ML FLUSH IVF SCH (08:39)
[2016-05-09] MEDS ORDERED: ASPIRIN 81 MG CHEW TAB PO SCH (09:00)
--- NOTE | 2016-05-09 09:33 | MA ---
cc: GREG MCFADDEN DO DATE 05/08/2016 PROCEDURE Left heart catheterization, coronary angiogram, drug-eluting stent x2 to LAD. PREPROCEDURE DIAGNOSIS 1. Chest pain concerning for unstable angina 2. Elevated troponin 3. Abnormal stress test POSTPROCEDURE DIAGNOSIS Coronary artery disease status post drug-eluting stent x2 to LAD. CONTRAST USED 200 cc's. ESTIMATED BLOOD LOSS 10 cc PROCEDURAL SUMMARY Mario Bar is a pleasant 55-year-old male who presented with chest pain concerning for unstable angina. He had a mildly elevated troponin and underwent pharmacologic nuclear stress testing. Stress testing showed an inferior septal defect into the apex. The concern was for possible super dominant RCA that may cover a significant portion of the apex versus a type 3 LAD which would cover a part of the apex and distal inferior wall. Because of this, he underwent cardiac catheterization. The risks, benefits and alternatives were explained to the patient and he consented as such. He was brought to the cardiac catheterization lab and prepped in the usual sterile fashion. Right radial artery was accessed using a modified Seldinger technique and placement of a 5/6 slender sheath. This was easily aspirated and flushed. A radial cocktail was given at this time. A JR-4 was then advanced to the ascending aorta over a J-wire and this was used to cross the left ventricle and measurement of left ventricular end-diastolic pressures. This was pulled back across the aortic valve showing no significant gradient of aortic stenosis. JR-4 was then attempted to be used for selective angiography of the RCA. 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 Selective angiography of the right coronary artery shows a mid lesion of 20% and a distal 30% lesion. JR-4 was then exchanged for a JL-3.5. This was used for selective angiography of the left coronary system. The left main is a normal-appearing vessel with no significant disease. It gives off an LAD and circumflex. The LAD is a relatively moderate sized vessel with a proximal to mid lesion of 80% and a mid lesion of 99%. The LAD appears to be a type 3 and wraps around the apex and supplies part of the inferior wall. He does give off two major diagonals with the first somewhat complicated with a proximal to mid lesion. The circumflex appears to have mild diffuse disease throughout. It gives off one major obtuse marginal which has a 30% ostial lesion and no significant disease throughout. Because of the patient's significant symptoms sounding like unstable angina, as well as an elevated troponin, I felt that the LAD should be intervened upon. It is a wrap around vessel and does supply an inferior septal and apical portion of the heart. The JL-3.5 was then exchanged for an EBU 3.5. The patient was given heparin for anticoagulation throughout the case. BMW wire was then advanced down the LAD to the distal portion. A 2.0 compliant balloon was then used on the [id number] lesion. This was then exchanged for a 2.5 x 12 compliant balloon and this was used on both the mid to distal and proximal to mid lesion. A Resolute drug-eluting stent (2.75 x 18) was then advanced to the mid to distal lesion. This was inflated across the lesion. The delivery system was then exchanged for a 2.75 noncompliant balloon which was inflated across the length of the stent. This balloon was then removed. For the proximal lesion, the concern was that diagonal was part of the lesion, as well as mismatch between the proximal and distal portion of the lesion and size. The vessel distal to the lesion appeared to be at 3.0. The diagonal was felt to be a relatively small vessel and I felt that provisional stenting was the best option. A Xience Alpine drug-eluting stent (3 x 18) was then advanced across the lesion and inflated. A 3-mm noncompliant balloon was then advanced to the distal portion of the stent and inflated. This was then exchanged for a 3.5 mm noncompliant balloon and this was used in the mid to distal portions of the stent. The wire was pulled back somewhat and shots were taken. At this time, I felt that the proximal portion of the stent was not as well expanded as it should be and so the wire was then advanced and a 4.0 mm noncompliant balloon was advanced and inflated in the proximal portions of the stent. The wire was then pulled back and post shots show NEREIDA-III flow throughout the LAD with no dissections or perforation noted. BMW wire was then removed. EBU guide was then removed over a J-wire. A TR band was placed across the radial arteriotomy site and inflated as the sheath was pulled. 12 cc of air were placed into the TR band. The patient was given 180 mg of Brilinta at the end of the case. He also has had a headache since having the Lexiscan stress test earlier so he was given Tylenol. He left the catheterization lab cardiovascularly stable. IMPRESSIONS 1. Chest pain concerning for unstable angina with an elevated troponin and abnormal stress test. 2. Coronary artery disease as above, status post drug-eluting stent x2 with a Xience Alpine drug-eluting started (3 x 18) in proximal to mid lesion and a Resolute drug-eluting stent (2.75 x 18) in the mid to distal lesion. RECOMMENDATIONS 1. Mr. Bar came in with chest pain concerning for unstable anginal and had unstable angina and had a abnormal stress test showing inferior septal ischemia into the apex. As he has these two lesions in the LAD and the LAD is a type 3 that wraps around the apex and covers part of the inferior wall, I felt that he should undergo intervention of these two lesions. 2. He will continue on aspirin and Brilinta. He understands that he needs to be on aspirin indefinitely and Brilinta for at least 12 months. 3. 2-D echo will be requested before discharge. 4. He will follow up with me in the office in the next 2-4 weeks. Thank you for allowing me to see Mario Bar. If there are any questions, please do not hesitate to call. Greg Mcfadden DO VGP/DJL /11:00 PM /9:06 AM
[2016-05-09 10:56] LABS: POTASSIUM 3.8 MEQ/L (3.5-5.1)
[2016-05-09 10:58] LABS: HDL CHOLESTEROL 50.5 MG/DL (40.0-60.0); INDIRECT BILIRUBIN 0.3 MG/DL (0.0-0.8); TOTAL BILIRUBIN ADULT 0.4 MG/DL (0.2-1.0)
--- NOTE | 2016-05-09 12:42 | PD.CARD.PN ---
Subjective Subjective Remarks Doing well, no chest pain, no shortness of breath Objective Medications Current Medications Enoxaparin Sodium (Lovenox Inj) 110 mg ONCE ONCE SQ Last administered on 20:59; Start 05/06/16 at 19:45; Stop 05/06/16 at 19:47; Status DC IV Flush (NS Flush) 2 ml UNSCH PRN FLUSH FLUSH AFTER USING IV ACCESS; Start at 21:00; Stop 05/09/16 at 11:41; Status DC IV Flush (NS Flush) 2 ml BID FLUSH Last administered on 05/09/16 08:39; Start 05/06/16 at 21:00; Stop 05/09/16 at 11:41; Status DC Naloxone HCl (Narcan Inj) 0.4 mg UNSCH PRN IV SEE LABEL COMMENTS; Start at 21:00; Stop 05/09/16 at 11:41; Status DC Aspirin (Ecotrin Ec) 325 mg DAILY PO Last administered on 05/08/16 11:00; Start 05/07/16 at 09:00; Stop 05/08/16 at 15:28; Status DC Nitroglycerin (Nitrostat Sl) 0.4 mg Q5M PRN SL ANGINA; Start 05/07/16 at 12:15 ; Stop 05/09/16 at 11:41; Status DC Ondansetron HCl (Zofran Inj) 4 mg Q6H PRN IVP NAUSEA OR VOMITING; Start at 12:15; Stop 05/09/16 at 11:41; Status DC Docusate Sodium (Colace) 100 mg Q12H PRN PO constipation; Start 05/07/16 at 12: 15; Stop 05/09/16 at 11:41; Status DC Acetaminophen (Tylenol) 650 mg Q6H PRN PO PAIN SCALE 1 TO 2; Start 05/07/16 at 12:15; Stop 05/08/16 at 15:31; Status DC Acetaminophen/ Hydrocodone Bitart (Clayton 5-325 Mg) 1 tab Q4H PRN PO PAIN SCALE 3 TO 10; Start 05/07/16 at 12:15; Stop 05/08/16 at 15:31; Status DC Morphine Sulfate (Morphine Inj) 2 mg Q3H PRN IV chest pain/breakthrough pain; Start 05/07/16 at 12:15; Stop 05/09/16 at 11:41; Status DC Folic Acid (Folate) 1 mg DAILY PO Last administered on 05/09/16 08:37; Start 05/08/16 at 09:00; Stop 05/09/16 at 11:41; Status DC Thiamine HCl (Vitamin B1) 100 mg DAILY PO Last administered on 05/09/16 08:36 ; Start 05/08/16 at 09:00; Stop 05/09/16 at 11:41; Status DC Multivitamins/ Minerals Therapeutic (Theragran M Tab) 1 tab DAILY PO Last administered on 05/09/16 08:37; Start 05/08/16 at 09:00; Stop 05/09/16 at 11:41 ; Status DC Flumazenil (Romazicon Inj) 0.2 mg Q1M PRN IV PUSH SEE LABEL COMMENTS; Start at 13:00; Stop 05/07/16 at 13:05; Status DC Lorazepam (Ativan) 1 mg Q4H PRN PO CIWA 8 - 10; Start 05/07/16 at 13:00; Stop 05/09/16 at 11:41; Status DC Lorazepam (Ativan Inj) 1 mg Q4H PRN IV PUSH CIWA 8 - 10; Start 05/07/16 at 13: 00; Stop 05/09/16 at 11:41; Status DC Lorazepam (Ativan) 2 mg Q2H PRN PO CIWA 11-14; Start 05/07/16 at 12:15; Stop at 11:41; Status DC Lorazepam (Ativan Inj) 2 mg Q2H PRN IV PUSH CIWA 11-14; Start 05/07/16 at 12:15 ; Stop 05/09/16 at 11:41; Status DC Lorazepam (Ativan Inj) 2 mg Q1H PRN IV PUSH CIWA 15-20; Start 05/07/16 at 12:15 ; Stop 05/09/16 at 11:41; Status DC Lorazepam (Ativan Inj) 2 mg Q15M PRN IV PUSH CIWA > 20; Start 05/07/16 at 12:15 ; Stop 05/09/16 at 11:41; Status DC Haloperidol Lactate (Haldol Inj) 2 mg Q15M PRN IM SEE LABEL COMMENTS; Start at 12:15; Stop 05/09/16 at 11:41; Status DC Enoxaparin Sodium (Lovenox Inj) 40 mg Q24H SQ Last administered on 05/07/16t 21 :16; Start 05/07/16 at 20:00; Stop 05/08/16 at 15:29; Status DC Regadenoson 0.4 mg 0.4 mg STK-MED ONCE .ROUTE Last administered on 05/08/16t 09 :46; Start 05/08/16 at 09:46; Stop 05/08/16 at 09:47; Status DC Heparin Sodium/ Sodium Chloride (Heparin-NS/Pf Inj) 500 ml @ As Directed STK- MED ONCE .ROUTE ; Start 05/08/16 at 13:03; Stop 05/08/16 at 13:04; Status DC Verapamil HCl (Isoptin Inj) 5 mg STK-MED ONCE .ROUTE ; Start 05/08/16 at 13:04; Stop 05/08/16 at 13:05; Status DC Heparin Sodium (Porcine) 02281 units 10,000 units STK-MED ONCE .ROUTE ; Start at 13:04; Stop 05/08/16 at 13:05; Status DC Nitroglycerin (Nitroglycerin Inj) 5 ml @ As Directed STK-MED ONCE .ROUTE ; Start 05/08/16 at 13:04; Stop 05/08/16 at 13:05; Status DC Midazolam HCl (Versed Inj) 2 mg STK-MED ONCE .ROUTE ; Start 05/08/16 at 13:09; Stop 05/08/16 at 13:10; Status DC Fentanyl Citrate 100 mcg 100 mcg STK-MED ONCE .ROUTE ; Start 05/08/16 at 13:09; Stop 05/08/16 at 13:10; Status DC Heparin Sodium/ Sodium Chloride (Heparin-NS/Pf Inj) 500 ml @ As Directed STK- MED ONCE .ROUTE ; Start 05/08/16 at 13:55; Stop 05/08/16 at 13:56; Status DC Midazolam HCl (Versed Inj) 2 mg STK-MED ONCE .ROUTE ; Start 05/08/16 at 14:33; Stop 05/08/16 at 14:34; Status DC Fentanyl Citrate (fentaNYL INJ) 100 mcg STK-MED ONCE .ROUTE ; Start 05/08/16 at 14:59; Stop 05/08/16 at 15:00; Status DC Ticagrelor (Brilinta) 180 mg STK-MED ONCE PO ; Start 05/08/16 at 14:59; Stop at 15:00; Status DC Acetaminophen (Tylenol) 650 mg Q4H PRN PO PAIN SCALE 1 TO 5; Start 05/08/16 at 15:30; Stop 05/09/16 at 11:41; Status DC Oxycodone/ Acetaminophen (Percocet 5-325 Mg) 1 tab Q4H PRN PO PAIN SCALE 6 TO 10 Last administered on 05/08/16 15:50; Start 05/08/16 at 15:30; Stop 05/09/16 at 11:41; Status DC Aspirin (Aspirin Chew) 81 mg DAILY PO Last administered on 05/09/16 08:36; Start 05/09/16 at 09:00; Stop 05/09/16 at 11:41; Status DC Ticagrelor (Brilinta) 90 mg BID PO Last administered on 05/09/16 08:37; Start 05/08/16 at 21:00; Stop 05/09/16 at 11:41; Status DC IV Flush (NS Flush) 2 ml UNSCH PRN IVF FLUSH AFTER USING IV ACCESS; Start 05/08 at 15:30; Stop 05/09/16 at 11:41; Status DC IV Flush (NS Flush) 2 ml BID IVF Last administered on 05/09/16 08:39; Start at 21:00; Stop 05/09/16 at 11:41; Status DC Miscellaneous Information 1 ONCE ONCE XX ; Start 05/08/16 at 15:30; Stop at 15:31; Status DC Iohexol (OMNIPAQUE 350 INJ (Aircraft Maintenance Instructor)) 100 ml STK-MED ONCE OTHER ; Start at 13:22; Stop 05/09/16 at 07:34; Status DC Vital Signs / I&O Vital Signs Date Time Temp Pulse Resp B/P Pulse Ox O2 Delivery O2 Flow Rate FiO2 05/09/16 08:00 61 17 134/85 99 05/09/16 07:00 70 05/09/16 04:28 63 144/99 96 05/09/16 04:00 51 05/09/16 03:00 58 05/09/16 01:00 57 05/09/16 00:00 97.7 69 142/77 98 05/08/16 23:00 69 05/08/16 22:00 76 05/08/16 21:00 72 05/08/16 20:00 77 05/08/16 20:00 67 140/94 97 05/08/16 19:00 67 I/O 05/08/16 05/08/16 05/08/16 05/09/16 05/09/16 05/09/16 07:00 15:00 23:00 07:00 15:00 23:00 Intake Total 240 ml Balance 240 ml Intake Oral 240 ml # Voids 1 4 Physical Exam GENERAL: NAD SKIN: Warm and dry. HEAD: Atraumatic. Normocephalic. EYES: Pupils equal and round. No scleral icterus. No injection or drainage. ENT: No nasal bleeding or discharge. Mucous membranes pink and moist. NECK: Trachea midline. No JVD. CARDIOVASCULAR: Regular rate and rhythm. RESPIRATORY: No accessory muscle use. Clear to auscultation. Breath sounds equal bilaterally. GASTROINTESTINAL: Abdomen soft, non-tender, nondistended. Hepatic and splenic margins not palpable. MUSCULOSKELETAL: Extremities without clubbing, cyanosis, or edema. No obvious deformities. NEUROLOGICAL: Awake and alert. No obvious cranial nerve deficits. Motor grossly within normal limits. Five out of 5 muscle strength in the arms and legs. Normal speech. PSYCHIATRIC: Appropriate mood and affect; insight and judgment normal. Laboratory Laboratory Tests Test 05/09/16 05/09/16 05:23 10:02 White Blood Count 8.5 TH/MM3 Red Blood Count 4.95 MIL/MM3 Hemoglobin 14.8 GM/DL Hematocrit 43.2 % Mean Corpuscular Volume 87.3 FL Mean Corpuscular Hemoglobin 29.9 PG Mean Corpuscular Hemoglobin 34.3 % Concent Red Cell Distribution Width 12.9 % Platelet Count 205 TH/MM3 Mean Platelet Volume 7.9 FL Neutrophils (%) (Auto) 61.6 % Lymphocytes (%) (Auto) 23.6 % Monocytes (%) (Auto) 11.8 % Eosinophils (%) (Auto) 2.5 % Basophils (%) (Auto) 0.5 % Neutrophils # (Auto) 5.3 TH/MM3 Lymphocytes # (Auto) 2.0 TH/MM3 Monocytes # (Auto) 1.0 TH/MM3 Eosinophils # (Auto) 0.2 TH/MM3 Basophils # (Auto) 0.0 TH/MM3 CBC Comment DIFF FINAL Differential Comment Sodium Level 138 MEQ/L Potassium Level 3.8 MEQ/L Chloride Level 103 MEQ/L Carbon Dioxide Level 28.0 MEQ/L Anion Gap 7 MEQ/L Blood Urea Nitrogen 15 MG/DL Creatinine 1.08 MG/DL Estimat Glomerular Filtration 71 ML/MIN Rate Random Glucose 143 MG/DL Calcium Level 8.8 MG/DL Total Bilirubin 0.4 MG/DL Direct Bilirubin 0.1 MG/DL Indirect Bilirubin 0.3 MG/DL Aspartate Amino Transf 26 U/L (AST/SGOT) Alanine Aminotransferase 47 U/L (ALT/SGPT) Alkaline Phosphatase 86 U/L Total Protein 7.9 GM/DL Albumin 4.1 GM/DL Triglycerides Level 221 MG/DL Cholesterol Level 229 MG/DL LDL Cholesterol 134 MG/DL HDL Cholesterol 50.5 MG/DL Cholesterol/HDL Ratio 4.53 RATIO Assessment and Plan Problem List: (1) Elevated troponin I level (2) Chest pain Assessment and Plan 1) Minimally elevated troponin, chest pain, abnormal stress test s/p DESx2 to LAD 2) ASA/Brilinta/Lipitor 3) EF 55-60% 4) Will follow up in the office with me in 2-4 weeks 5) Stable for discharge, discussed with Dr. Snider Problem Qualifiers (1) Chest pain: Qualified Code: R07.9 - Chest pain, unspecified type Greg Whitney DO May 09, 2016 12:42
--- NOTE | 2016-05-09 16:39 | EKG ---
Date Performed: 05/08/2016 Time Performed: 15:44:02 PTAGE: 55 years EKG: Sinus rhythm rSr'(V1) - probable normal variant Anterior T wave changes are nonspecific Borderline ECG PREVIOUS TRACING : 05/07/2016 06.20 DOCTOR: Juan Navas Interpretating Date/Time 05/09/2016 16:37:36
--- NOTE | 2016-05-31 12:45 | PD.CARD.PN ---
Subjective Subjective Remarks Note for clarification of no statin started post-NSTEMI. Patient previously admitted with elevated troponins, undergoing cardiac catheterization and stenting. Spoke to the patient and his about statin therapy along with Dr. Snider. They decided to hold off until seeing myself in the office. Before able to see me in the office, patient presented again to the ER. At that time, Mario was willing to be started on statin therapy. Greg Whitney DO May 31, 2016 12:45
== END 2016-05-09 11:33 | disposition home or self-care (01) | DRG 247 ==
LOC: NEPC 14:09 → NEDA 20:53 → NEDH 05-07 00:53 → NEPGCP 05-07 02:11 → HCIS 05-08 14:24
PROVIDERS: ADMIT Hospitalist; ATTEND Hospitalist
PROC: 02703ZZ Dilation of Coronary Artery, One Artery, Percutaneous Approach (ICD-10-PCS; 2016-05-08)
PROC: 4A023N7 Measurement of Cardiac Sampling and Pressure, Left Heart, Percutaneous Approach (ICD-10-PCS; 2016-05-08)
PROC: B2111ZZ Fluoroscopy of Multiple Coronary Arteries using Low Osmolar Contrast (ICD-10-PCS; 2016-05-08)
PROC: 3E073GC Introduction of Other Therapeutic Substance into Coronary Artery, Percutaneous Approach (ICD-10-PCS; 2016-05-08)
PROC: 027035Z Dilation of Coronary Artery, One Artery with Two Drug-eluting Intraluminal Devices, Percutaneous Approach (ICD-10-PCS; principal; 2016-05-08 12:30)
DX: I21.4 Non-ST elevation (NSTEMI) myocardial infarction (principal); I25.110 Atherosclerotic heart disease of native coronary artery with unstable angina pectoris; R00.1 Bradycardia, unspecified; F17.290 Nicotine dependence, other tobacco product, uncomplicated; Z82.49 Family history of ischemic heart disease and other diseases of the circulatory system; F12.10 Cannabis abuse, uncomplicated
CPT/HCPCS: 71010; 78452; 80048; 80061; 80076; 82550; 82552; 83690; 83735; 84484; 85002; 85025; 85610; 85730; 92928; 92960; 93005; 93017; 93306; 93454; A9502; C1725; C1769; C1874; C1887; C1893; J1644; J1650; J2250; J2785; J3010; Q9967

== ENCOUNTER 2016-05-17 19:39 | Inpatient (IN) | payer OTHER ==
[~2016-05-17] VITALS: Ht 185.4 cm; Wt 110.0 kg
[~2016-05-17 19:39] MED LIST changes: +ASPI81CH CHEW; +BRIL90TA PO; +NITR0.4S SL; +VITA100T2 PO; -Z.0.NO CURRENT MEDS
[2016-05-17 19:40] VITALS: BP 163/88; PULSE 102; RESP 16; TEMP 97.6; O2SAT 96
[2016-05-17 19:50] VITALS: BP 147/89; PULSE 91; RESP 18; TEMP 97.7; O2SAT 95
[2016-05-17 19:52] LABS: MEAN CORPUSCULAR HGB CONC 36.2 % (32.0-36.0)
--- NOTE | 2016-05-17 19:59 | PD ---
HPI Chief Complaint: Chest Pain Time Seen by Provider: 19:50 Travel History International Travel<30 days: No Contact w/Intl Traveler<30days: No Traveled to known affect area: No History of Present Illness HPI 55-year-old male complains of neck pain and chest pain. Patient states that the symptoms started about an hour prior coming to the emergency room. Patient was admitted on May 06, 2016 for non-STEMI. Patient had cardiac catheter and had JILL 2 to the LAD. Patient was discharged home on May 09. Patient should has been taking aspirin 81 mg daily and Brilinta 90 mg twice a day. Patient states that he started having neck tightness with occasional sharp pain left chest similar to the pain he had when he was admitted for chest pain the last time. Patient denies any palpitation nausea vomiting diaphoresis. Patient denies any shortness of breath. Patient still smokes. Patient denies history hypertension, diabetes, dyslipidemia. Patient has family history heart disease. On a scale from 1-10 the chest pain and neck pain is a 2 now. PFSH Past Medical History Asthma: No Blood Disorders: No Anxiety: No Depression: No Heart Rhythm Problems: No Cancer: No Cardiac Catheterization: No Cardiovascular Problems: Yes High Cholesterol: No Chemotherapy: No Chest Pain: No Congestive Heart Failure: No COPD: No Diabetes: No Diminished Hearing: No Endocrine: No Genitourinary: No Hypertension: Yes Immune Disorder: No Musculoskeletal: Yes (FINGER FRACTURES RIGHT HAND) Neurologic: No Psychiatric: No Reproductive: No Respiratory: No Radiation Therapy: No Sleep Apnea: No Thyroid Disease: No Past Surgical History Appendectomy: Yes Coronary Artery Bypass Graft: No Tonsillectomy: Yes Social History Alcohol Use: Yes (3 drinks daily) Tobacco Use: Yes (OCC, cigars) Substance Use: Yes (MARIJUANA) Allergies-Medications (Allergen,Severity, Reaction): Coded Allergies: No Known Allergies (Unverified , 05/17/16) Reported Meds & Prescriptions Reported Meds & Active Scripts Active Aspirin 81 Mg Chew 81 Mg CHEW DAILY Nitrostat SL (Nitroglycerin) 0.4 Mg Subl 0.4 Mg SL Q5M PRN Vitamin B-1 (Thiamine HCl) 100 Mg Tab 100 Mg PO DAILY Brilinta (Ticagrelor) 90 Mg Tab 90 Mg PO BID Review of Systems General / Constitutional: No: Fever Eyes: No: Visual changes HENT: No: Headaches Cardiovascular: Positive: Chest Pain or Discomfort Respiratory: No: Shortness of Breath Gastrointestinal: No: Abdominal Pain Genitourinary: No: Dysuria Musculoskeletal: No: Pain Skin: No Rash Neurologic: No: Weakness Psychiatric: No: Depression Endocrine: No: Polydipsia Hematologic/Lymphatic: No: Easy Bruising Physical Exam Narrative GENERAL: Well-nourished, well-developed patient. SKIN: Warm and dry. HEAD: Normocephalic. EYES: No scleral icterus. No injection or drainage. NECK: Supple, trachea midline. No JVD or lymphadenopathy. CARDIOVASCULAR: Regular rate and rhythm without murmurs, gallops, or rubs. RESPIRATORY: Breath sounds equal bilaterally. No accessory muscle use. GASTROINTESTINAL: Abdomen soft, non-tender, nondistended. MUSCULOSKELETAL: No cyanosis, or edema. BACK: Nontender without obvious deformity. No CVA tenderness. Neurologic exam normal. Data Data Last Documented VS Vital Signs Date Time Temp Pulse Resp B/P Pulse Ox O2 Delivery O2 Flow Rate FiO2 05/17/16 20:05 96 Room Air 05/17/16 19:50 97.7 91 18 147/89 Orders Electrocardiogram (05/17/16 19:50) Complete Blood Count With Diff (05/17/16 19:50) Comprehensive Metabolic Panel (05/17/16 19:50) Creatine Kinase (Cpk) (05/17/16 19:50) Troponin I (05/17/16 19:50) B-Type Natriuretic Peptide (05/17/16 19:50) Prothrombin Time / Inr (Pt) (05/17/16 19:50) Act Partial Throm Time (Ptt) (05/17/16 19:50) Chest, Single Ap (05/17/16 19:50) Iv Access Insert/Monitor (05/17/16 19:50) Ecg Monitoring (05/17/16 19:50) Oximetry (05/17/16 19:50) Ckmb (Isoenzyme) Profile (05/18/16 01:35) Ckmb (Isoenzyme) Profile (05/18/16 07:35) Ckmb (Isoenzyme) Profile (05/18/16 13:35) Troponin I (05/18/16 01:35) Troponin I (05/18/16 07:35) Troponin I (05/18/16 13:35) ^ Obtain As Needed (05/17/16 21:23) Diet Npo Except Meds (05/18/16 Breakfast) ^ Notify Of These Side Effects (05/17/16 21:23) ^ Notify Dr: Blood Pressure (05/17/16 21:23) ^ Smoking Cessation Counseling (05/17/16 21:23) Sodium Chloride 0.9% Flush (Ns Flush) (05/18/16 09:00) Sodium Chloride 0.9% Flush (Ns Flush) (05/17/16 21:30) Dextrose 5% In Wate 1000ml Inj (D5w 1000 (05/17/16 21:23) Nitroglycerin 2% Oint (Nitroglycerin 2% (05/18/16 00:00) Nitroglycerin Sl (Nitrostat Sl) (05/17/16 21:30) Morphine Inj (Morphine Inj) (05/17/16 21:30) Acetaminophen (Tylenol) (05/17/16 21:30) Docusate Sodium (Colace) (05/17/16 21:30) Alprazolam (Xanax) (05/17/16 21:30) Ondansetron Inj (Zofran Inj) (05/17/16 21:30) Consult Cardiology (05/17/16 ) Kindergartner / Telemetry (05/17/16 21:23) Metoprolol Tartrate (Lopressor) (05/18/16 09:00) Heparin Infusion JUSTIN.Q1H (05/17/16 21:23) Heparin Inj (Heparin Inj) (05/17/16 21:30) Heparin-D5w Inj (Heparin-D5w Inj) (05/17/16 21:30) Act Partial Throm Time (Ptt) (05/17/16 21:23) Cbc No Diff, Includes Plts (05/17/16 21:23) Cbc No Diff, Includes Plts (05/20/16 06:00) Act Partial Throm Time (Ptt) (05/18/16 04:23) Occult Blood (Hemoccult) Stool (05/17/16 21:23) Ticagrelor (Brilinta) (05/18/16 09:00) Aspirin Chew (Aspirin Chew) (05/18/16 09:00) Admit Order (Ed Use Only) (05/17/16 21:36) Labs Laboratory Tests Test 05/17/16 19:35 White Blood Count 9.8 TH/MM3 Red Blood Count 4.94 MIL/MM3 Hemoglobin 15.3 GM/DL Hematocrit 42.4 % Mean Corpuscular Volume 85.8 FL Mean Corpuscular Hemoglobin 31.0 PG Mean Corpuscular Hemoglobin 36.2 % Concent Red Cell Distribution Width 12.7 % Platelet Count 285 TH/MM3 Mean Platelet Volume 7.7 FL Neutrophils (%) (Auto) 62.3 % Lymphocytes (%) (Auto) 25.5 % Monocytes (%) (Auto) 9.8 % Eosinophils (%) (Auto) 1.7 % Basophils (%) (Auto) 0.7 % Neutrophils # (Auto) 6.1 TH/MM3 Lymphocytes # (Auto) 2.5 TH/MM3 Monocytes # (Auto) 1.0 TH/MM3 Eosinophils # (Auto) 0.2 TH/MM3 Basophils # (Auto) 0.1 TH/MM3 CBC Comment DIFF FINAL Differential Comment Prothrombin Time 11.4 SEC Prothromb Time International 1.0 RATIO Ratio Activated Partial 26.2 SEC Thromboplast Time Sodium Level 139 MEQ/L Potassium Level 4.1 MEQ/L Chloride Level 103 MEQ/L Carbon Dioxide Level 27.7 MEQ/L Anion Gap 8 MEQ/L Blood Urea Nitrogen 14 MG/DL Creatinine 1.04 MG/DL Estimat Glomerular Filtration 74 ML/MIN Rate Random Glucose 98 MG/DL Calcium Level 8.8 MG/DL Total Bilirubin 0.3 MG/DL Aspartate Amino Transf 24 U/L (AST/SGOT) Alanine Aminotransferase 33 U/L (ALT/SGPT) Alkaline Phosphatase 89 U/L Total Creatine Kinase 181 U/L Troponin I LESS THAN 0.02 NG/ML B-Type Natriuretic Peptide 14 PG/ML Total Protein 7.8 GM/DL Albumin 3.9 GM/DL [facility] Medical Decision Making Medical Screen Exam Complete: Yes Emergency Medical Condition: Yes Medical Record Reviewed: Yes Interpretation(s) 1958 PM. EKG shows sinus rhythm nonspecific ST-T wave change. Incomplete right bundle-branch block. 21:01 PM. CBC within normal limit. CMP within normal limit. Cardiac enzymes are normal. Differential Diagnosis Differential diagnosis including musculoskeletal, angina, MS, PE, pneumothorax. Narrative Course 55-year-old male with chest pain and neck pain. Status post non-STEMI with 2 stents placement in the LAD. Spoke with Dr. Schmidt, on-call for assistant property manager. Advised heparin bolus and drip, beta denys, nitrates and continue with Brilinta and aspirin. Patient will be admitted to the [facility]. Diagnosis Primary Impression: Chest pain Qualified Code: R07.9 - Chest pain, unspecified type Shemar Miranda MD May 17, 2016 19:59
[2016-05-17 20:05] VITALS: O2SAT 96
[2016-05-17 20:23] LABS: AUTOMATED NEUTROPHIL # 6.1 TH/MM3 (1.8-7.7); BASOPHIL # 0.1 TH/MM3 (0-0.2); BASOPHIL % 0.7 % (0.0-2.0); EOSINOPHIL # 0.2 TH/MM3 (0-0.4); EOSINOPHIL % 1.7 % (0.0-4.0); HEMATOCRIT 42.4 % (39.0-51.0); LYMPH % 25.5 % (9.0-44.0); LYMPHOCYTE # 2.5 TH/MM3 (1.0-4.8); MEAN CELL VOLUME 85.8 FL (80.0-100.0); MONO % 9.8 % (0.0-8.0); NEUT % 62.3 % (16.0-70.0); PLATELET COUNT 285 TH/MM3 (150-450); RED BLOOD COUNT 4.94 MIL/MM3 (4.50-5.90); RED CELL DISTRIBUTION WIDTH 12.7 % (11.6-17.2); WHITE BLOOD COUNT 9.8 TH/MM3 (4.0-11.0)
[2016-05-17 20:26] LABS: HEMO FLAGS DIFF FINAL
[2016-05-17 20:41] LABS: APTT (PATIENT) 26.2 SEC (24.3-30.1); PROTHROMBIN TIME - PATIENT 11.4 SEC (9.8-11.6)
[2016-05-17 20:44] LABS: ALKALINE PHOSPHATASE 89 U/L (45-117); ALT (GPT) 33 U/L (12-78); ANION GAP 8 MEQ/L (5-15); AST (GOT) 24 U/L (15-37); BICARBONATE 27.7 MEQ/L (21.0-32.0); BLOOD UREA NITROGEN 14 MG/DL (7-18); CHLORIDE 103 MEQ/L (98-107); CREATINE KINASE 181 U/L (39-308); GLOMERULAR FILTRATION RATE 74 ML/MIN (>89); SODIUM (NA) 139 MEQ/L (136-145); TOTAL BILIRUBIN ADULT 0.3 MG/DL (0.2-1.0)
[2016-05-17 20:58] LABS: POTASSIUM 4.1 MEQ/L (3.5-5.1)
[2016-05-17] MEDS ORDERED: DEXTROSE 5% IN WATE 1000ML INJ 1,000 ML IV SCH (21:23)
[2016-05-17] MEDS ORDERED: ONDANSETRON HCL 4 MG/2 ML VIAL IV PRN (21:30)
[2016-05-17] MEDS ORDERED: SODIUM CHLORIDE 0.9% FLUSH 5 ML FLUSH IVF PRN (21:30)
[2016-05-17] MEDS ORDERED: HEPARIN-D5W INJ 250 ML IV SCH (21:30)
[2016-05-17] MEDS ORDERED: HEPARIN SODIUM - IV 10,000 UNITS/10 ML VIAL IV ONE (21:30)
[2016-05-17] MEDS ORDERED: MORPHINE SULFATE 4 MG/ML INJ IV PRN (21:30)
[2016-05-17] MEDS ORDERED: ALPRAZolam 0.25 MG TAB PO PRN (21:30)
[2016-05-17] MEDS ORDERED: NITROGLYCERIN 0.4 MG SL 25 TABS/BTL SL PRN (21:30)
[2016-05-17] MEDS ORDERED: DOCUSATE SODIUM 100 MG CAP PO PRN (21:30)
--- NOTE | 2016-05-17 21:30 | RADRPT ---
EXAM DATE/TIME: 05/17/2016 20:22 [facility] COMPARISON: No previous studies available for comparison. INDICATIONS : Left sided chest pain status post 2 cardiac stents placed 2 weeks ago. MEDICAL HISTORY : None. SURGICAL HISTORY : 2 cardiac stents. ENCOUNTER: Initial ACUITY: 1 day PAIN SCORE: 5/10 LOCATION: chest FINDINGS: A single view of the chest demonstrates the lungs to be symmetrically aerated without evidence of mas s, infiltrate or effusion. The cardiomediastinal contours are unremarkable. Osseous structures are intact. CONCLUSION: No acute disease. Wallace Goldsmith MD on May 17, 2016 at 21:28 Board Certified Radiologist. This report was verified electronically.
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
[2016-05-17] MEDS ORDERED: FLUMAZENIL 0.5 MG/5 ML VIAL IV PUSH PRN (22:15)
[2016-05-17] MEDS ORDERED: SODIUM CHLORIDE 0.9% FLUSH 5 ML FLUSH FLUSH PRN (22:15)
[2016-05-17] MEDS ORDERED: LORazepam 1 MG TAB PO PRN (22:15)
[2016-05-17] MEDS ORDERED: MULTIVITAMIN INJ 10 ML, FOLIC ACID INJ 1 MG in SODIUM CHLORID 0.9% 500 ML INJ 500 ML IV SCH (22:15)
[2016-05-17] MEDS ORDERED: LORazepam 2 MG TAB PO PRN (22:15)
[2016-05-17] MEDS ORDERED: BISACODYL 10 MG SUPP PR PRN (22:15)
[2016-05-17] MEDS ORDERED: HALOPERIDOL LACTATE 5 MG/ML AMP IM PRN (22:15)
[2016-05-17] MEDS ORDERED: LORazepam 2 MG/ML VIAL IV PUSH PRN ×4 (22:15)
[2016-05-17] MEDS ORDERED: THIAMINE INJ 100 MG in SODIUM CHLORIDE 0.9% INJ 100 ML IV SCH (22:15)
[2016-05-17] MEDS: SODIUM CHLOR 0.9% 1000 ML INJ 1,000 ML IV SCH (23:14)
[2016-05-17 23:17] VITALS: BP 121/73; PULSE 70; RESP 18
[2016-05-18] VITALS (19 sets, daily range): BP systolic 103–138; BP diastolic 64–84; PULSE 53–82; RESP 16–20; TEMP 97.5–98.7; O2SAT 94–99
[2016-05-18] MEDS: NITROGLYCERIN 2% OINT 1 GM PACKET TOP SCH ×4 (00:20→17:18)
[2016-05-18 01:49] LABS: CREATINE KINASE 118 U/L (39-308)
[2016-05-18 02:02] LABS: CKMB 1.1 NG/ML (0.5-3.6)
[2016-05-18 02:08] LABS: HEMATOCRIT 40.8 % (39.0-51.0); MEAN CELL VOLUME 86.8 FL (80.0-100.0); MEAN CORPUSCULAR HEMOGLOBIN 29.8 PG (27.0-34.0); MEAN CORPUSCULAR HGB CONC 34.3 % (32.0-36.0); PLATELET COUNT 249 TH/MM3 (150-450); RED BLOOD COUNT 4.71 MIL/MM3 (4.50-5.90); RED CELL DISTRIBUTION WIDTH 13.3 % (11.6-17.2); REVIEW FLAG FINAL; WHITE BLOOD COUNT 9.7 TH/MM3 (4.0-11.0)
[2016-05-18 02:25] LABS: APTT (PATIENT) 40.1 SEC (24.3-30.1)
[2016-05-18] MEDS: ACETAMINOPHEN 325 MG TAB PO PRN ×2 (06:49→17:24)
[2016-05-18] MEDS: SODIUM CHLOR 0.9% 1000 ML INJ 1,000 ML IV SCH ×2 (08:02→17:18)
[2016-05-18] MEDS: TICAGRELOR 90 MG TAB PO SCH ×2 (08:52→11:24)
[2016-05-18] MEDS ORDERED: ASPIRIN 81 MG CHEW TAB CHEW SCH (09:00)
[2016-05-18] MEDS ORDERED: ATORVASTATIN 20 MG TAB PO SCH (09:00)
[2016-05-18] MEDS ORDERED: METOPROLOL TARTRATE 25 MG TAB PO SCH (09:00)
[2016-05-18] MEDS ORDERED: SODIUM CHLORIDE 0.9% FLUSH 5 ML FLUSH FLUSH SCH (09:00)
[2016-05-18] MEDS ORDERED: SODIUM CHLORIDE 0.9% FLUSH 5 ML FLUSH IVF SCH (09:00)
[2016-05-18 09:02] LABS: CREATINE KINASE 99 U/L (39-308)
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
[2016-05-18 11:37] LABS: APTT (PATIENT) 34.1 SEC (24.3-30.1)
--- NOTE | 2016-05-18 11:59 | EKG ---
Date Performed: 05/18/2016 Time Performed: 01:00:14 PTAGE: 55 years EKG: Sinus rhythm POSSIBLE RIGHT VENTRICULAR CONDUCTION DELAY Since previous tracing, no significant change noted [facility] ECG PREVIOUS TRACING : 05/17/2016 19.48.28 DOCTOR: Surinder Santiago Interpretating Date/Time 05/18/2016 11:58:07
--- NOTE | 2016-05-18 11:59 | EKG ---
Date Performed: 05/17/2016 Time Performed: 19:48:28 PTAGE: 55 years EKG: Sinus rhythm INCOMPLETE RIGHT BUNDLE BRANCH BLOCK Since previous tracing, no significant change noted BORDERLINE ECG PREVIOUS TRACING : 05/08/2016 15.44 DOCTOR: Surinder Santiago Interpretating Date/Time 05/18/2016 11:58:31
[2016-05-18] MEDS ORDERED: REGADENOSON INJ 0.4 MG/5 ML SYR ONE (14:19)
[2016-05-18 15:20] LABS: CREATINE KINASE 172 U/L (39-308)
[2016-05-18 15:32] LABS: CKMB 2.2 NG/ML (0.5-3.6)
--- NOTE | 2016-05-18 17:12 | RADRPT ---
EXAM DATE/TIME: 05/18/2016 14:13 [facility] COMPARISON: MYOCARDIAL PERF PHARM SPECT, GATED W/EF, May 08, 2016, 8:49. INDICATIONS : Substernal chest pain post cardiac stenting. Angina. Congestive heart failure. DOSE: 30 mCi Tc99m Myoview at stress. 10 mCi Tc99m Myoview at rest. 0.4 mg Lexiscan STRESS SYMPTOMS: Dyspnea and headache. EJECTION FRACTION: 54% MEDICAL HISTORY : Hypertension. Myocardial infarction. Coronary artery disease. SURGICAL HISTORY : Coronary artery stent. Appendectomy. ENCOUNTER: Subsequent ACUITY: 2 days PAIN SCALE: 5/10 LOCATION: Substernal chest TECHNIQUE: The patient underwent pharmacologic stress with infusion of prescribed dose. Continuous ECG tracing was monitored during stress. Gated SPECT imaging was performed after stress and conventional SPECT i maging was performed at rest. The examination was performed on a SPECT/CT scanner, both attenuation and non-corrected datasets were reviewed. FINDINGS: DISTRIBUTION: The maximum perfused segment at stress is in the anterolateral wall. PERFUSION STUDY: The pattern of perfusion at stress is within normal limits. GATED STUDY: There is intact wall motion and thickening without hypokinetic or dyskinetic segments. CONCLUSION: 1. No significant reversibility identified on the current study. 2. Normal wall motion with ejection fraction 54%. RISK CATEGORY: Low (<1% Annual Mortality Rate) Wallace Goldsmith MD on May 18, 2016 at 17:03 Board Certified Radiologist. This report was verified electronically.
[2016-05-18 17:14] LABS: APTT (PATIENT) 31.1 SEC (24.3-30.1)
[2016-05-18] MEDS ORDERED: OMEP40CA2 PO (18:45)
[2016-05-18] MEDS ORDERED: METO25TA3 PO (18:49)
[2016-05-18] MEDS ORDERED: LIPI20TA PO (18:49)
--- NOTE | 2016-05-18 18:57 | HHI.PR ---
Subjective Remarks Patient seen today around noon. Prior to myocardial perfusion scan. Says he is feeling well. Denies any chest pain today. Objective Vital Signs Date Time Temp Pulse Resp B/P Pulse Ox O2 Delivery O2 Flow Rate FiO2 05/18/16 17:37 57 05/18/16 16:53 82 05/18/16 15:00 62 05/18/16 15:00 98.0 62 20 138/80 99 05/18/16 14:00 71 05/18/16 13:26 54 05/18/16 12:37 60 05/18/16 11:00 97.6 62 18 113/70 94 05/18/16 10:10 62 05/18/16 09:01 55 05/18/16 08:08 55 05/18/16 07:30 62 05/18/16 07:30 97.6 56 16 105/64 98 05/18/16 06:01 57 05/18/16 05:00 55 05/18/16 04:01 53 05/18/16 03:15 97.5 69 20 103/65 95 05/18/16 03:00 54 05/18/16 02:01 58 05/18/16 01:36 98.7 59 16 128/84 99 05/18/16 01:36 98.7 59 16 128/84 99 05/18/16 01:30 56 05/18/16 00:31 Room Air 05/17/16 23:17 70 18 121/73 97 05/17/16 20:05 96 Room Air 05/17/16 19:53 95 Room Air 05/17/16 19:50 97.7 91 18 147/89 95 05/17/16 19:40 97.6 102 16 163/88 96 I/O 05/17/16 05/17/16 05/17/16 05/18/16 05/18/16 05/18/16 07:00 15:00 23:00 07:00 15:00 23:00 Intake Total 1174 ml 2331 ml Output Total 1250 ml Balance 1174 ml 1081 ml Intake Oral 0 ml 1300 ml IV Total 1174 ml 1031 ml Output Urine Total 1250 ml # Voids 0 # Bowel Movements 0 1 Result Diagram: 05/18/16 0152 05/17/16 1935 Imaging Last Impressions Myocardial Perfusion Scan Nuc Med 05/18/16 0000 Signed Impressions: Service Date/Time: Wednesday, May 18, 2016 14:13 - CONCLUSION: 1. No significant reversibility identified on the current study. 2. Normal wall motion with ejection fraction 54%%. RISK CATEGORY: Low (<1%% Annual Mortality Rate) Wallace Goldsmith MD Chest X-Ray 05/17/16 1950 Signed Impressions: Service Date/Time: Tuesday, May 17, 2016 20:22 - CONCLUSION: No acute disease. Wallace Goldsmith MD Objective Remarks GENERAL: Sitting up in bed. Appears couple. Alert and oriented 3. SKIN: Warm and dry. HEAD: Normocephalic. EYES: No scleral icterus. No injection or drainage. NECK: Supple, trachea midline. No JVD. CARDIOVASCULAR: Regular rate and rhythm without murmurs, gallops, or rubs. RESPIRATORY: Breath sounds equal bilaterally. No accessory muscle use. GASTROINTESTINAL: Abdomen soft, non-tender, nondistended. MUSCULOSKELETAL: No cyanosis, or edema. BACK: Nontender without obvious deformity. No CVA tenderness. A/P Assessment and Plan //Chest Pain: r/o ACS, recent admit 05/06-05/09/16 s/p Stent x2 by Dr. Whitney, d/c'd on Brilinta/ASA, compliant w/ meds. Acute onset of chest pain, now resolved. Continue NTG/Morphine prn. Dr. Schmidt consulted by ER physician, recommended Heparin gtt, continuation of Brilinta/ASA and NPO status -Troponins negative 3. -Started on metoprolol twice daily. -Start on PPI for possible noncardiac chest pain. Appreciate cardiology assistance. Nuclear perfusion scan negative for inducible ischemia. //HTN: BP 160's on arrival. Improved. Continue home medications // Alcohol Use: Drinks 3 beers/day, denies withdrawal symptoms. -Received thiamine. No signs of withdrawal. Been drinking 2 or fewer drinks per day due to anticoagulation. //Tobacco Use: Counseled. Cessation strongly advised. //DVT prophylaxis. Received heparin drip. Patient is ambulatory. Discharge Planning Discharge home today. Follow-up with primary care in a week. Cardiology in a month. Wilber Gonsalves MD May 18, 2016 18:57
[2016-05-19] MEDS ORDERED: PNEUMOCOCCAL POLYVALENT INJ 25 MCG/0.5 ML SYR IM ONE (10:00)
[2016-05-19] MEDS ORDERED: INFLUENZA VIRUS VACCINE (QUADRIVALENT) 0.5 ML SYR IM ONE (10:00)
[2016-05-21] MEDS ORDERED: THIAMINE HCL 100 MG TAB PO SCH (09:00)
== END 2016-05-18 19:25 | disposition home or self-care (01) | DRG 313 ==
LOC: NEPA 19:39 → NEDA 21:42 → HCPC 05-18 01:15
PROVIDERS: ADMIT Internal Medicine; ATTEND Internal Medicine
DX: R07.89 Other chest pain (principal); I25.2 Old myocardial infarction; I10 Essential (primary) hypertension; E78.5 Hyperlipidemia, unspecified; F10.10 Alcohol abuse, uncomplicated; F17.200 Nicotine dependence, unspecified, uncomplicated; Z95.5 Presence of coronary angioplasty implant and graft; Z82.49 Family history of ischemic heart disease and other diseases of the circulatory system; Z79.82 Long term (current) use of aspirin
CPT/HCPCS: 71010; 78452; 80053; 82550; 82552; 83880; 84484; 85025; 85027; 85610; 85730; 93005; 93017; A9502; J1644; J2785; J3411; J7030; J7040

== ENCOUNTER 2018-01-12 19:28 | Inpatient (IN) ==
[2018-01-12 21:26] LABS: Baso # (Auto) 0.1 th/mm3 (0.0-0.2); Baso % (Auto) 0.4 % (0.0-2.0); Eos # (Auto) 0.3 th/mm3 (0.0-0.4); Eos % (Auto) 1.9 % (0.0-4.0); Hematocrit 43.4 % (39.0-51.0); Hemoglobin 15.1 gm/dL (13.0-17.0); Lymph # (Auto) 2.5 th/mm3 (1.0-4.8); Lymph % (Auto) 17.2 % (9.0-44.0); Mean Corpuscular HGB Conc 34.9 % (32.0-36.0); Mean Corpuscular Hemoglobin 30.7 pg (27.0-34.0); Mean Platelet Volume 7.8 fL (7.0-11.0); Mono # (Auto) 1.4 th/mm3 (0.0-0.9); Neut # (Auto) 10.1 th/mm3 (1.8-7.7); Neut % (Auto) 70.5 % (16.0-70.0); Platelet Count 262 th/mm3 (150-450); Red Blood Count 4.94 mil/mm3 (4.50-5.90); Red Cell Distribution Width 12.7 % (11.6-17.2); White Blood Count 14.3 th/mm3 (4.0-11.0)
[2018-01-12 21:48] LABS: Albumin 4.3 g/dL (3.4-5.0); Anion Gap 10 meq/L (5-15); Aspartate Aminotransferase 19 U/L (15-37); Blood Urea Nitrogen 23 mg/dL (7-18); Calcium 9.7 mg/dL (8.5-10.1); Carbon Dioxide 24.9 meq/L (21.0-32.0); Chloride 104 meq/L (98-107); Glomerular Filtration Rate 60 mL/min (>89); Glucose,Random 114 mg/dL (74-106); Lipase 96 U/L (73-393); Potassium 3.8 meq/L (3.5-5.1); Sodium 139 meq/L (136-145)
[2018-01-12 21:49] LABS: Alanine Aminotransferase 28 U/L (12-78)
[2018-01-12 21:51] LABS: Alkaline Phosphatase 98 U/L (45-117); Total Protein 8.2 g/dL (6.4-8.2)
[2018-01-12 23:08] LABS: Bilirubin,Urine Negative (Negative); Calcium Oxalate Crystals,Urine Rare /hpf; Clarity,Urine Hazy (Clear); Color,Urine Yellow (Yellw/Straw); Glucose,Urine (UA) Negative (Negative); Leukocyte Esterase,Urine Trace (Negative); Mucus,Urine Few /lpf (Occasional); Nitrite,Urine Negative (Negative); Specific Gravity,Urine 1.026 (1.002-1.035)
[2018-01-12] MEDS ORDERED: Ketorolac Inj 30 MG/ML (IVP) Vial IV.PUSH STA (23:25)
[2018-01-13] MEDS ORDERED: Piperacil/Tazo 4.5 GM Premix 4.5 GM/100 ML BAG IV.SIG ONE (00:36)
--- NOTE | 2018-01-13 00:51 | CT ---
EXAM DATE: 01/13/2018 11:25 PM EDT AGE/SEX: 57 years / Male INDICATIONS: Left lower quadrant pain. CLINICAL DATA: This is the patient's initial encounter. Patient reports that signs and symptoms have been present for 1 day and indicates a pain score of 8/10. MEDICAL/SURGICAL HISTORY: Myocardial infarction. None. ORAL CONTRAST: No oral contrast ingested. RADIATION DOSE: 9.03 CTDI (mGy) COMPARISON: [facility] [place], CT ABDOMEN & PELVIS W CONTRAST, 02/22/2012. . TECHNIQUE: Multiple contiguous axial images were obtained through the abdomen and pelvis following b olus infusion of 80 ml Omnipaque 350 (iohexol) nonionic water-soluble contrast as a single exam dos e. No oral contrast ingested. Using automated exposure control and adjustment of the mA and/or kV ac cording to patient size, radiation dose was kept as low as reasonably achievable to obtain optimal di agnostic quality images. DICOM format image data is available electronically for review and comparis on. FINDINGS: LOWER LUNGS: Small subcentimeter cysts at the lung bases bilaterally. LIVER: The liver has a homogeneous density without space-occupying lesion. There is no dilation of t he biliary tree. Gallbladder is moderately distended. SPLEEN: Homogeneous density without enlargement. PANCREAS: Unremarkable without mass or calcification. KIDNEYS: 8 x 16 mm calcified calculus at the UPJ with resultant moderate left-sided hydronephrosis. There is mild perinephric stranding on the left. No additional radiopaque renal calculi are noted. Ri ght kidney is unremarkable. ADRENAL GLANDS: Unremarkable. AORTA: Naina-aneurysmal. BOWEL/MESENTERY: The bowel loops are grossly unremarkable. The cecum and sigmoid colon have a dafne l configuration. Mild sigmoid diverticulosis. ABDOMINAL WALL: Intact. RETROPERITONEUM: No evidence of adenopathy in the retrocrural, para-aortic, or deep pelvic regions. BLADDER: Contours are smooth. REPRODUCTIVE: Prominent containing coarse calcifications. BONY STRUCTURES: Lower lumbar spine facet arthropathy. CONCLUSION: 1. 8 x 16 mm left UPJ calculus with moderate left-sided hydronephrosis. 2. No additional radiopaque renal calculi. 3. Mild sigmoid diverticulosis. 4. Enlarged prostate. Electronically signed by: Seun Medel MD 01/13/2018 12:49 AM EDT
--- NOTE | 2018-01-13 00:58 | ED ---
HPI General Chief complaint: Abdominal Pain Stated complaint: General pain Time Seen by Provider: 01/12/18 23:14 History of Present Illness HPI narrative: 57 male here for evaluation of abdominal pain sudden onset in the left flank started 3:00 this afternoon, sharp, 7 out of 10, nothing makes it better or worse, radiates to the pelvic area, no nausea or vomiting or diarrhea, no chest pain or shortness of breath, pain is constant. Related Data Home Medications Medication Instructions Recorded Confirmed aspirin [Aspir-81] 81 mg PO DAILY 01/13/18 01/13/18 atorvastatin [Lipitor] 40 mg PO DAILY 01/13/18 01/13/18 metoprolol tartrate [Lopressor] 12.5 mg PO BID 01/13/18 01/13/18 ticagrelor [Brilinta] 90 mg PO BID 01/13/18 01/13/18 Previous Rx's Medication Instructions Recorded tamsulosin [Flomax] 0.4 mg PO DAILY #30 cap 01/14/18 Allergies Allergy/AdvReac Type Severity Reaction Status Date / Time No Known Allergies Allergy Unverified 01/12/18 19:53 Review of Systems ROS: all other systems reviewed are negative [facility] Medical History Medical History Coronary artery disease (Acute) Hyperlipidemia (Acute) Myocardial infarction (Acute) Surgical History Surgical History History of appendectomy (Acute) Hx of cardiac cath (Acute) Family History Family History Other Coronary artery disease Social History Social History Substance History: Active Abuse Second Hand Smoke Exposure: No Smoking Status: Never smoker Tobacco Type: Pipe How Often Do You Have a Drink Containing Alcohol: 4 or more times a week Recent Travel in [facility] within the Last 8 Weeks: No Recent Out of Country Travel within the Last 8 Weeks: No Substance Abuse Detail Marijuana: Substance Use Status: Active Immunization History Tetanus Immunization: Unsure Hx Influenza Vaccine This Season: No Exam Narrative Exam Narrative: GENERAL: Alert oriented x3 no acute distress. SKIN: Focused skin assessment warm/dry. HEAD: Atraumatic. Normocephalic. EYES: Pupils equal and round. No scleral icterus. No injection or drainage. ENT: No nasal bleeding or discharge. Mucous membranes pink and moist. NECK: Trachea midline. No JVD. CARDIOVASCULAR: Regular rate and rhythm. No murmur appreciated. RESPIRATORY: No accessory muscle use. Clear to auscultation. Breath sounds equal bilaterally. GASTROINTESTINAL: Abdomen soft, non-tender, nondistended. Hepatic and splenic margins not palpable. MUSCULOSKELETAL: No obvious deformities. No clubbing. No cyanosis. No edema. NEUROLOGICAL: Awake and alert. No obvious cranial nerve deficits. Motor grossly within normal limits. Normal speech. PSYCHIATRIC: Appropriate mood and affect; insight and judgment normal. Course Reevaluation(s) Reevaluation #1: Patient with left-sided pain presents to the ER. CAT scan reveals a large left UPJ stone with moderate hydro-. Patient is given additional Zofran 4 mg IV and 4 mg of morphine IV. Will admit the patient to observation status under Dr. Rhoades. She has accepted the admission and will have urology consult. Patient is aware and agrees of the diagnosis and treatment plan. Time: 01:15 Initial Documented Vital Signs Temperature 98.4 F 01/12/18 19:53 Pulse Rate 55 L 01/12/18 19:53 Respiratory Rate 20 01/12/18 19:53 Blood Pressure 164/78 H 01/12/18 19:53 Pulse Oximetry 100 01/12/18 19:53 Last Documented Vital Signs Temperature 97.9 F 01/14/18 16:40 Pulse Rate 67 01/14/18 16:40 Respiratory Rate 18 01/14/18 16:40 Blood Pressure 148/85 H 01/14/18 16:40 Pulse Oximetry 100 01/14/18 16:40 Medical Decision Making [facility] Narrative Medical decision making narrative: 57 male here for left flank pain rated 6 out of 10, labs are reasonably within normal limits except for leukocytosis, CAT scan shows 8 x 16 mm left UPJ stone with left hydronephrosis. Patient will need admission for urological evaluation. Medical Screen Exam Complete: Yes Emergency Medical Condition: Yes Lab Data Result diagrams: 01/14/18 06:00 01/14/18 06:00 Lab Results 01/12/18 01/12/18 01/12/18 Range/Units 20:30 20:30 20:35 WBC 14.3 H (4.0-11.0) th/mm3 RBC 4.94 (4.50-5.90) mil/mm3 Hgb 15.1 (13.0-17.0) gm/dL Hct 43.4 (39.0-51.0) % MCV 88.0 (80.0-100.0) fL MCH 30.7 (27.0-34.0) pg MCHC 34.9 (32.0-36.0) % RDW 12.7 (11.6-17.2) % Plt Count 262 (150-450) th/mm3 MPV 7.8 (7.0-11.0) fL Neut % (Auto) 70.5 H (16.0-70.0) % Lymph % (Auto) 17.2 (9.0-44.0) % [place] % (Auto) 10.0 H (0.0-8.0) % Eos % (Auto) 1.9 (0.0-4.0) % Baso % (Auto) 0.4 (0.0-2.0) % Neut # (Auto) 10.1 H (1.8-7.7) th/mm3 Lymph # (Auto) 2.5 (1.0-4.8) th/mm3 [place] # (Auto) 1.4 H (0.0-0.9) th/mm3 Eos # (Auto) 0.3 (0.0-0.4) th/mm3 Baso # (Auto) 0.1 (0.0-0.2) th/mm3 WBC Differential . Differential Comment Auto diff final Sodium 139 (136-145) meq/L Potassium 3.8 (3.5-5.1) meq/L Chloride 104 (98-107) meq/L Carbon Dioxide 24.9 (21.0-32.0) meq/L Anion Gap 10 (5-15) meq/L BUN 23 H (7-18) mg/dL Creatinine 1.24 (0.60-1.30) mg/dL Estimated GFR 60 L (>89) mL/min Random Glucose 114 H (74-106) mg/dL Calcium 9.7 (8.5-10.1) mg/dL Total Bilirubin 0.6 (0.2-1.0) mg/dL AST 19 (15-37) U/L ALT 28 (12-78) U/L Alkaline Phosphatase 98 (45-117) U/L Total Protein 8.2 (6.4-8.2) g/dL Albumin 4.3 (3.4-5.0) g/dL Lipase 96 (73-393) U/L Urine Color Yellow (Yellw/Straw) Urine Clarity Hazy H (Clear) Urine pH 5.0 (5.0-8.5) Ur Specific [place] 1.026 (1.002-1.035) Urine Protein Negative (Neg-Trace) mg/dL Urine Glucose (UA) Negative (Negative) mg/dL Urine Ketones Negative (Negative) mg/dL Urine Occult Blood Large H (Negative) Urine Nitrate Negative (Negative) Urine Bilirubin Negative (Negative) Urine Urobilinogen 2.0 H (Less than 2) mg/dL Ur Leukocyte Esterase Trace H (Negative) Urine RBC 7 H (0-3) /hpf Urine WBC 3 (0-5) /hpf Calcium Oxalate Crystal Rare H (None) /hpf Urine Mucus Few H (Occasional) /lpf Micro UA Comment Culture not ind Ur Microscopic Review Not Reportable Urine Culture Comments Culture not ind 01/14/18 01/14/18 Range/Units 06:00 06:00 WBC 8.3 (4.0-11.0) th/mm3 RBC 4.15 L (4.50-5.90) mil/mm3 Hgb 12.9 L D (13.0-17.0) gm/dL Hct 37.4 L (39.0-51.0) % MCV 90.2 (80.0-100.0) fL MCH 31.1 (27.0-34.0) pg MCHC 34.6 (32.0-36.0) % RDW 13.0 (11.6-17.2) % Plt Count 179 D (150-450) th/mm3 MPV 8.3 (7.0-11.0) fL Neut % (Auto) 61.2 (16.0-70.0) % Lymph % (Auto) 23.6 (9.0-44.0) % [place] % (Auto) 12.0 H (0.0-8.0) % Eos % (Auto) 2.5 (0.0-4.0) % Baso % (Auto) 0.7 (0.0-2.0) % Neut # (Auto) 5.1 (1.8-7.7) th/mm3 Lymph # (Auto) 1.9 (1.0-4.8) th/mm3 [place] # (Auto) 1.0 H (0.0-0.9) th/mm3 Eos # (Auto) 0.2 (0.0-0.4) th/mm3 Baso # (Auto) 0.1 (0.0-0.2) th/mm3 WBC Differential . Differential Comment Auto diff final Sodium 142 (136-145) meq/L Potassium 4.3 (3.5-5.1) meq/L Chloride 108 H (98-107) meq/L Carbon Dioxide 24.5 (21.0-32.0) meq/L Anion Gap 10 (5-15) meq/L BUN 22 H (7-18) mg/dL Creatinine 1.54 H (0.60-1.30) mg/dL Estimated GFR 47 L (>89) mL/min Random Glucose 92 (74-106) mg/dL Calcium 8.0 L D (8.5-10.1) mg/dL Total Bilirubin (0.2-1.0) mg/dL AST (15-37) U/L ALT (12-78) U/L Alkaline Phosphatase (45-117) U/L Total Protein (6.4-8.2) g/dL Albumin (3.4-5.0) g/dL Lipase (73-393) U/L Urine Color (Yellw/Straw) Urine Clarity (Clear) Urine pH (5.0-8.5) Ur Specific [place] (1.002-1.035) Urine Protein (Neg-Trace) mg/dL Urine Glucose (UA) (Negative) mg/dL Urine Ketones (Negative) mg/dL Urine Occult Blood (Negative) Urine Nitrate (Negative) Urine Bilirubin (Negative) Urine Urobilinogen (Less than 2) mg/dL Ur Leukocyte Esterase (Negative) Urine RBC (0-3) /hpf Urine WBC (0-5) /hpf Calcium Oxalate Crystal (None) /hpf Urine Mucus (Occasional) /lpf Micro UA Comment Ur Microscopic Review Urine Culture Comments Imaging Data Radiologist's impression: Abdomen/Pelvis CT 01/13/18 23:25 CONCLUSION: 1. 8 x 16 mm left UPJ calculus with moderate left-sided hydronephrosis. 2. No additional radiopaque renal calculi. 3. Mild sigmoid diverticulosis. 4. Enlarged prostate. Discharge Plan Discharge Disposition Patient Disposition: 30 Still Patient Discharge Condition Condition: Stable Discharge Order Discharge Orders: Discharge Order (Routine); Ordered 01/14/18 Ordered By: Nimisha Godfrey Discharge Details Anticipated Discharge Date: 01/13/18 Diagnosis: Ureterolithiasis Physicians Team ED Provider: [facility] ED Midlevel Provider: Wallace Carter Primary Care Provider: Primary Care Jaja Singh Attending Provider: Paolo Collins Other Providers: Harjinder Flowers Status ED Status: Left Department Discharge Information Discharge Date/Time: 01/13/18 04:50
[2018-01-13] MEDS ORDERED: Morphine Inj 4 MG/ML Vial IV.PUSH ONE (01:11)
[2018-01-13] MEDS: Sod Chloride 0.9% Inj 1,000 ML IV.SIG SCH ×2 (01:12→13:59)
[2018-01-13] MEDS ORDERED: Temazepam 15 MG Capsule PO PRN (01:53)
[2018-01-13] MEDS ORDERED: Bisacodyl 10 MG Supp RECTAL PRN (01:53)
[2018-01-13] MEDS ORDERED: Acetaminophen 325 MG Tablet PO PRN (01:53)
--- NOTE | 2018-01-13 02:00 | P.HP ---
History of Present Illness Service: [facility] Primary Care Physician: No Primary Care Physician History of Present Illness: 57-year-old male with a past medical history significant for coronary artery disease and hyperlipidemia presents to the emergency department for the evaluation of left sided flank pain that began yesterday afternoon. He described the pain is sharp and unrelenting. It radiates to the pelvic area. He denies any nausea or vomiting. No chest pain or shortness of breath. No diarrhea. No fevers/chills. No dysuria. Review of Systems All other systems reviewed negative except as stated in HPI PMFSH - History History Provided By: Patient - Medical History Medical History: Medical History (Last Updated 01/13/18 @ 01:55 by Tri Rhoades MD) Coronary artery disease Hyperlipidemia Myocardial infarction - Surgical History Surgical History: Surgical History (Last Updated 01/13/18 @ 01:55 by Tri Rhoades MD) History of appendectomy Hx of cardiac cath - Family History Family History: Family History (Last Updated 01/13/18 @ 01:55 by Tri Rhoades MD) Other Coronary artery disease - Tobacco History Second Hand Smoke Exposure: No Tobacco Use In Past 30 Days: No Smoking Status: Current some day smoker Tobacco Type: Pipe - Alcohol History How Often Do You Have a Drink Containing Alcohol: 2 to 3 times a week - Substance Use History Substance History: Active Abuse - Substance Use Type Marijuana Status: Active - Travel History Recent Travel in the [place] Within the Last 8 Weeks: No Recent Travel Out of the Country Within the Last 8 Weeks: No - Immunization History Tetanus Immunization: Unsure Hx Influenza Vaccine This Season: No Medications and Allergies Active Medications: Active Medications Sodium Chloride (Ns Inj) 1,000 mls @ 0 mls/hr IV.SIG BOLUS TENZIN Last Infusion: 01/13/18 01:39 Dose: Infused Allergies Allergy/AdvReac Type Severity Reaction Status Date / Time No Known Allergies Allergy Unverified 01/12/18 19:53 Home Medications Medication Instructions Recorded Confirmed Type aspirin [Aspir-81] 81 mg PO DAILY 01/13/18 01/13/18 History atorvastatin [Lipitor] 40 mg PO DAILY 01/13/18 01/13/18 History metoprolol tartrate [Lopressor] 12.5 mg PO BID 01/13/18 01/13/18 History ticagrelor [Brilinta] 90 mg PO BID 01/13/18 01/13/18 History Exam Vital signs: Vital Signs 01/12/18 19:53 01/13/18 01:12 Temperature 98.4 F Pulse Rate 55 L 62 Respiratory Rate 20 18 Blood Pressure 164/78 H 164/81 H Pulse Oximetry 100 100 Intake & Output 01/12/18 01/12/18 01/13/18 06:59 18:59 06:59 Intake Total 1200 / 1200 Balance 1200 / 1200 Weight 65.771 kg Intake: IV 1200 / 1200 Zosyn 4.5 GM Premix 4.5 gm In 200 / 200 100 ml @ 200 mls/hr IV.SIG ONCE ONE Rx#:[id number] NS Inj 1,000 ML @ Wide Open IV. 1000 / 1000 SIG BOLUS TENZIN Rx#:[id number] Narrative: Gen.: No acute distress Head: Normocephalic. Atraumatic. EENT: Pupils equal round and reactive to light. Nose without drainage. Airway intact. Throat without injection. Cardiovascular: Regular rate and rhythm. No murmurs, rubs or gallops. Respiratory: Lungs clear to auscultation bilaterally. No wheezes or rhonchi. Abdomen: Soft, nontender, nondistended. No peritoneal signs. : Left CVA tenderness Musculoskeletal: No gross deformities. No edema. Skin: No obvious rashes or erythema. Neuro: Sensory and motor grossly intact. Cranial nerves II through XII grossly intact. Results - Labs CBC & Chem 7: 01/12/18 20:30 01/12/18 20:30 Labs: Laboratory Results - last 24 hr 01/12/18 01/12/18 01/12/18 20:30 20:30 20:35 WBC 14.3 H RBC 4.94 Hgb 15.1 Hct 43.4 MCV 88.0 MCH 30.7 MCHC 34.9 RDW 12.7 Plt Count 262 MPV 7.8 Neut % (Auto) 70.5 H Lymph % (Auto) 17.2 [place] % (Auto) 10.0 H Eos % (Auto) 1.9 Baso % (Auto) 0.4 Neut # (Auto) 10.1 H Lymph # (Auto) 2.5 [place] # (Auto) 1.4 H Eos # (Auto) 0.3 Baso # (Auto) 0.1 WBC Differential . Differential Comment Auto diff final Sodium 139 Potassium 3.8 Chloride 104 Carbon Dioxide 24.9 Anion Gap 10 BUN 23 H Creatinine 1.24 Estimated GFR 60 L Random Glucose 114 H Calcium 9.7 Total Bilirubin 0.6 AST 19 ALT 28 Alkaline Phosphatase 98 Total Protein 8.2 Albumin 4.3 Lipase 96 Urine Color Yellow Urine Clarity Hazy H Urine pH 5.0 Ur Specific [place] 1.026 Urine Protein Negative Urine Glucose (UA) Negative Urine Ketones Negative Urine Occult Blood Large H Urine Nitrate Negative Urine Bilirubin Negative Urine Urobilinogen 2.0 H Ur Leukocyte Esterase Trace H Urine RBC 7 H Urine WBC 3 Calcium Oxalate Crystal Rare H Urine Mucus Few H Micro UA Comment Culture not ind Ur Microscopic Review Not Reportable Urine Culture Comments Culture not ind - Imaging Impressions Abdomen/Pelvis CT 01/13/18 23:25 CONCLUSION: 1. 8 x 16 mm left UPJ calculus with moderate left-sided hydronephrosis. 2. No additional radiopaque renal calculi. 3. Mild sigmoid diverticulosis. 4. Enlarged prostate. Caprini VTE Risk Assessment Caprini VTE Risk Assessment: No/Low Risk (score <= 1) Caprini Risk Assessment Model: Point Value = 1 Point Value = 2 Point Value = 3 Point Value = 5 Age 41-60 Minor surgery BMI > 25 kg/m2 Swollen legs Varicose veins or History of unexplained or recurrent spontaneous Oral contraceptives or hormone replacement Sepsis (< 1 month) Serious lung disease, including pneumonia (< 1 month) Abnormal pulmonary function Acute myocardial infarction Congestive heart failure (< 1 month) History of inflammatory bowel disease Medical patient at bed rest Age 61-74 Arthroscopic surgery Major open surgery (> 45 min) Laparoscopic surgery (> 45 min) Malignancy Confined to bed (> 72 hours) Immobilizing plaster cast Central venous access Age >= 75 History of VTE Family history of VTE Factor V Leiden Prothrombin [id number] Lupus anticoagulant Anticardiolipin antibodies Elevated serum homocysteine Heparin-induced thrombocytopenia Other congenital or acquired thrombophilia Stroke (< 1 month) Elective arthroplasty Hip, pelvis, or leg fracture Acute spinal cord injury (< 1 month) Prophylaxis Regimen: Total Risk Factor Score Risk Level Prophylaxis Regimen 0-1 Low Early ambulation 2 Moderate Order ONE of the following: *Sequential Compression Device (SCD) *Heparin 5000 units SQ BID 3-4 Higher Order ONE of the following medications: *Heparin 5000 units SQ TID *Enoxaparin/Lovenox 40 mg SQ daily (WT < 150 kg, CrCl > 30 mL/min) *Enoxaparin/Lovenox 30 mg SQ daily (WT < 150 kg, CrCl > 10-29 mL/min) *Enoxaparin/Lovenox 30 mg SQ BID (WT < 150 kg, CrCl > 30 mL/min) AND/OR *Sequential Compression Device (SCD) 5 or more Highest Order ONE of the following medications: *Heparin 5000 units SQ TID (Preferred with Epidurals) *Enoxaparin/Lovenox 40 mg SQ daily (WT < 150 kg, CrCl > 30 mL/min) *Enoxaparin/Lovenox 30 mg SQ daily (WT < 150 kg, CrCl > 10-29 mL/min) *Enoxaparin/Lovenox 30 mg SQ BID (WT < 150 kg, CrCl > 30 mL/min) AND *Sequential Compression Device (SCD) Assessment and Plan - Plan Assessment/plan: 1. Nephrolithiasis CT of the abdomen/pelvis significant for 8 x 16 mm left UPJ calculus with moderate left-sided hydronephrosis UA without signs of obvious infection Urology consulted, appreciate recommendations 2. Coronary artery disease Continue Brilinta/aspirin 3. Hypertension Continue home metoprolol 4. Hyperlipidemia Patient intolerant to statins FEN N.p.o. Electrolytes: Monitor and replete as needed NS at 100 cc/hour
[2018-01-13] MEDS: Sod Chloride 0.9% Inj 1,000 ML IV.CONT SCH ×3 (02:30→23:54)
[2018-01-13] MEDS: Morphine Sulfate Inj 2 MG/ML Vial IV.PUSH PRN ×2 (08:44→21:06)
[2018-01-13] MEDS: Metoprolol Tartrate 50 MG Tablet PO SCH ×2 (08:48→21:08)
--- NOTE | 2018-01-13 09:48 | P.PN ---
Subjective Interval history: Follow-up for nephrolithiasis. Patient reports his symptoms have slightly improved overnight. He still reports left flank and left groin pain, however fairly well controlled after receiving IV pain medication. He denies any further nausea or vomiting. Denies fevers or chills. He denies any prior history of nephrolithiasis. He does report recent urinary hesitancy and retention. Denies any other medical complaints at this time. Physical Exam Vital signs: Vital Signs 01/12/18 19:53 01/13/18 01:12 01/13/18 04:34 Temperature 98.4 F Pulse Rate 55 L 62 60 Respiratory Rate 20 18 16 Blood Pressure 164/78 H 164/81 H 138/78 Pulse Oximetry 100 100 01/13/18 08:00 Temperature 97.7 F Pulse Rate 49 L Respiratory Rate 16 Blood Pressure 135/77 Pulse Oximetry 99 Intake & Output 01/12/18 01/13/18 01/13/18 18:59 06:59 18:59 Intake Total 1200 / 1200 Balance 1200 / 1200 Weight 65.771 kg Intake: IV 1200 / 1200 Zosyn 4.5 GM Premix 4.5 gm In 200 / 200 100 ml @ 200 mls/hr IV.SIG ONCE ONE Rx#:[id number] NS Inj 1,000 ML @ Wide Open IV. 1000 / 1000 SIG BOLUS TENZIN Rx#:[id number] Other: # Voids 1 Date of Last Bowel Movement 01/13/18 Weight On Admission 65.771 kg Narrative: GENERAL: Well-nourished, well-developed middle-aged male patient in [facility]. SKIN: Warm and dry. No rash. HEENT: Normocephalic. Atraumatic. Pupils equal and round. Mucous membranes pink and moist. CARDIOVASCULAR: Regular rate and rhythm. No murmur appreciated. RESPIRATORY: No accessory muscle use. Clear to auscultation. Breath sounds equal bilaterally. GASTROINTESTINAL: Abdomen soft, nondistended, mild left groin and suprapubic TTP. Normoactive bowel sounds x4. MUSCULOSKELETAL: No obvious deformities. Extremities without clubbing, cyanosis , or edema. No CVA tenderness bilaterally today. NEUROLOGICAL: Awake and alert. No obvious cranial nerve deficits. Motor grossly within normal limits. Moving all extremities spontaneously. Normal speech. PSYCHIATRIC: Appropriate mood and affect; insight and judgment normal. Results - Labs CBC & Chem 7: 01/12/18 20:30 01/12/18 20:30 Laboratory Results - last 24 hr 01/12/18 01/12/18 01/12/18 20:30 20:30 20:35 WBC 14.3 H RBC 4.94 Hgb 15.1 Hct 43.4 MCV 88.0 MCH 30.7 MCHC 34.9 RDW 12.7 Plt Count 262 MPV 7.8 Neut % (Auto) 70.5 H Lymph % (Auto) 17.2 [place] % (Auto) 10.0 H Eos % (Auto) 1.9 Baso % (Auto) 0.4 Neut # (Auto) 10.1 H Lymph # (Auto) 2.5 [place] # (Auto) 1.4 H Eos # (Auto) 0.3 Baso # (Auto) 0.1 WBC Differential . Differential Comment Auto diff final Sodium 139 Potassium 3.8 Chloride 104 Carbon Dioxide 24.9 Anion Gap 10 BUN 23 H Creatinine 1.24 Estimated GFR 60 L Random Glucose 114 H Calcium 9.7 Total Bilirubin 0.6 AST 19 ALT 28 Alkaline Phosphatase 98 Total Protein 8.2 Albumin 4.3 Lipase 96 Urine Color Yellow Urine Clarity Hazy H Urine pH 5.0 Ur Specific [place] 1.026 Urine Protein Negative Urine Glucose (UA) Negative Urine Ketones Negative Urine Occult Blood Large H Urine Nitrate Negative Urine Bilirubin Negative Urine Urobilinogen 2.0 H Ur Leukocyte Esterase Trace H Urine RBC 7 H Urine WBC 3 Calcium Oxalate Crystal Rare H Urine Mucus Few H Micro UA Comment Culture not ind Ur Microscopic Review Not Reportable Urine Culture Comments Culture not ind - Imaging Impressions Abdomen/Pelvis CT 01/13/18 23:25 CONCLUSION: 1. 8 x 16 mm left UPJ calculus with moderate left-sided hydronephrosis. 2. No additional radiopaque renal calculi. 3. Mild sigmoid diverticulosis. 4. Enlarged prostate. Assessment and Plan - Plan 57-year-old male with history of CAD status post stents x2, hyperlipidemia, hypertension, presents with a 1 day history of left-sided flank pain Acute nephrolithiasis: With intractable left groin/flank pain. -CT abdomen/pelvis significant for 8 x 16 mm left UPJ calculus with moderate left-sided hydronephrosis; enlarged prostate -UA without signs of obvious infection -Start on Flomax 0.4 mg daily -Continue IVF hydration -Pain control with Tylenol, IV Toradol, and IV morphine -Urology consulted, plans for stent insertion today, and will need lithotripsy in the future Coronary artery disease: s/p stent placement x2 [place] [address] Whitney -Continue patient's Brilinta/aspirin, statin, and metoprolol -Monitor on telemetry Hypertension: Chronic -Continue home metoprolol -Monitor BP, adjust antihypertensives as needed Hyperlipidemia: Chronic -Continue patient's statin DVT prophylaxis: Teds/SCDs, on aspirin/Plavix, avoiding further chemical prophylaxis with upcoming procedure Discharge Planning: Going for ureteral stent placement today. Further disposition to follow.
--- NOTE | 2018-01-13 13:39 | MB ---
cc: LionelCucon Ap DO DATE: 01/13/2018 HISTORY OF PRESENT ILLNESS: Mr. Bar is a pleasant 57-year-old male, who presented with left-sided flank pain to the emergency room yesterday. The pain was sharp, but he denied any nausea or vomiting. He did note intermittent gross hematuria before this. He denies any prior history of stones. CT scan in the emergency room demonstrated left hydronephrosis with a 1.6 cm left UPJ calculus with left-sided hydronephrosis causing obstruction. PAST MEDICAL HISTORY: Includes coronary artery disease, status post myocardial infarction in the past, hyperlipidemia. PAST SURGICAL HISTORY: Cardiac catheterization with 2 cardiac stents placed in the past and a history of an appendectomy. FAMILY HISTORY: Noted for stones. SOCIAL HISTORY: Smokes marijuana. Denies alcohol. Denies any other drug use. REVIEW OF SYSTEMS: Denies chest pain, shortness of breath. Does have left-sided flank pain, hematuria is noted. Denies gait disturbances, bleeding disorders, headaches, vision changes. Remaining review of systems reviewed and are negative. ALLERGIES: No allergies. MEDICATIONS: Please refer to the chart. PHYSICAL EXAMINATION: VITAL SIGNS: Temperature 98.3, heart rate 56, respiratory rate 20, 106/59. GENERAL: Well-developed, well-nourished, 62-year-old male in no acute distress. HEENT: Normocephalic, atraumatic. Pupils equal, round, regular and reactive to light. Extraocular movements intact. NECK: Supple. HEART: Regular rate and rhythm. LUNGS: Clear. ABDOMEN: Soft, nontender, nondistended. Left CVA tenderness noted. GENITOURINARY: Normal phallus. Testes are descended. EXTREMITIES: Show no cyanosis, clubbing, or edema. NEUROLOGIC: Cranial nerves 2-12 are intact. DIAGNOSTIC DATA: Again, CT scan shows a 1.6 to 1.7 left UPJ stone with hydronephrosis. White count 14.3, hemoglobin 15.1, hematocrit 43.4, platelet count of 262. Sodium 139, potassium 3.8, chloride 104, CO2 of 24.9, BUN of 23, creatinine 1.24, glucose of 110. Urinalysis shows trace leukocyte esterase with 7 red cells and 3 white cells. ASSESSMENT AND PLAN: A 57-year-old male with 1.7 cm left ureteropelvic junction stone causing obstruction. We will plan for cystoscopy with left double-J stent insertion. The patient will need lithotripsy in the future. N.p.o. after midnight. Thank you for the consultation and allowing me to participate in the care of this patient. Harjinder Flowers DO SWRenu/rian , 01:10 PM , 01:17 PM
--- NOTE | 2018-01-13 21:15 | ECG ---
Date Performed: 01/12/2018 Time Performed: 20:42:13 PTAGE: 57 years EKG: SINUS BRADYCARDIA POSSIBLE RIGHT VENTRICULAR CONDUCTION DELAY ABNORMAL ECG PREVIOUS TRACING : 05/18/2016 01.00 Since the previous tracing, no significant change noted DOCTOR: Elfego Goldsmith Interpretating Date/Time 01/13/2018 21:14:55
[2018-01-14] MEDS: Ketorolac Inj 30 MG/ML (IVP) Vial IV.PUSH PRN ×2 (00:19→06:11)
[2018-01-14] MEDS: Morphine Sulfate Inj 2 MG/ML Vial IV.PUSH PRN (01:20)
[2018-01-14 07:52] LABS: Baso # (Auto) 0.1 th/mm3 (0.0-0.2); Baso % (Auto) 0.7 % (0.0-2.0); Eos # (Auto) 0.2 th/mm3 (0.0-0.4); Eos % (Auto) 2.5 % (0.0-4.0); Hematocrit 37.4 % (39.0-51.0); Hemoglobin 12.9 gm/dL (13.0-17.0); Lymph # (Auto) 1.9 th/mm3 (1.0-4.8); Lymph % (Auto) 23.6 % (9.0-44.0); Mean Corpuscular HGB Conc 34.6 % (32.0-36.0); Mean Corpuscular Hemoglobin 31.1 pg (27.0-34.0); Mean Corpuscular Volume 90.2 fL (80.0-100.0); Mean Platelet Volume 8.3 fL (7.0-11.0); Neut # (Auto) 5.1 th/mm3 (1.8-7.7); Neut % (Auto) 61.2 % (16.0-70.0); Platelet Count 179 th/mm3 (150-450); Red Blood Count 4.15 mil/mm3 (4.50-5.90); White Blood Count 8.3 th/mm3 (4.0-11.0)
[2018-01-14 08:13] VITALS: RESP 18
[2018-01-14 08:21] LABS: Carbon Dioxide 24.5 meq/L (21.0-32.0); Potassium 4.3 meq/L (3.5-5.1)
--- NOTE | 2018-01-14 09:23 | P.PN ---
Subjective Interval history: Follow-up for left nephrolithiasis and hydronephrosis. The patient reports is intermittent episodes of left flank and left groin pain overnight, however currently improved. He denies any fevers or chills. Denies any nausea or vomiting. He has not yet had a bowel movement during this hospitalization. He has been able to urinate, denies hematuria, but does report some left groin pain with urination. He is going for left ureteral stent placement today. He has no other medical complaints at this time. Physical Exam Vital signs: Vital Signs 01/13/18 12:00 01/13/18 15:48 01/13/18 21:00 Temperature 98.3 F 97.7 F 98.4 F Pulse Rate 56 L 54 L 54 L Respiratory Rate 20 16 20 Blood Pressure 106/59 L 107/61 132/72 Pulse Oximetry 98 100 96 01/13/18 21:36 01/14/18 00:49 01/14/18 04:00 Temperature 98.1 F Pulse Rate 52 L Respiratory Rate 16 16 Blood Pressure 129/64 Pulse Oximetry 99 01/14/18 07:19 01/14/18 08:11 Temperature 97.4 F L Pulse Rate 62 Respiratory Rate 14 18 Blood Pressure 139/83 Pulse Oximetry 97 Intake & Output 01/13/18 01/14/18 01/14/18 18:59 06:59 18:59 Intake Total 1000 / 1000 2000 / 2000 Output Total 600 / 600 150 / 150 Balance 400 / 400 1850 / 1850 Weight 65.76 kg Intake: IV 1000 / 1000 1999 / 1999 NS Inj 1,000 ML @ 100 mls/hr IV 1000 / 1000 1000 / 1000 .CONT .Q10H TENZIN Rx#:[id number] NS Inj 1,000 ML @ Wide Open IV. 1000 / 1000 SIG BOLUS TENZIN Rx#:[id number] Output: Urine 600 / 600 150 / 150 Other: # Voids 1 Date of Last Bowel Movement 01/13/18 01/13/18 Narrative: GENERAL: Well-nourished, well-developed middle-aged male patient in [facility]. SKIN: Warm and dry. No rash. HEENT: Normocephalic. Atraumatic. Pupils equal and round. Mucous membranes pink and moist. CARDIOVASCULAR: Regular rate and rhythm. No murmur appreciated. RESPIRATORY: No accessory muscle use. Clear to auscultation. Breath sounds equal bilaterally. GASTROINTESTINAL: Abdomen soft, nondistended, mild left groin and suprapubic TTP. Normoactive bowel sounds x4. MUSCULOSKELETAL: No obvious deformities. Extremities without clubbing, cyanosis , or edema. No CVA tenderness bilaterally today. NEUROLOGICAL: Awake and alert. No obvious cranial nerve deficits. Motor grossly within normal limits. Moving all extremities spontaneously. Normal speech. PSYCHIATRIC: Appropriate mood and affect; insight and judgment normal. Results - Labs CBC & Chem 7: 01/14/18 06:00 01/14/18 06:00 Laboratory Results - last 24 hr 01/14/18 01/14/18 06:00 06:00 WBC 8.3 RBC 4.15 L Hgb 12.9 L D Hct 37.4 L MCV 90.2 MCH 31.1 MCHC 34.6 RDW 13.0 Plt Count 179 D MPV 8.3 Neut % (Auto) 61.2 Lymph % (Auto) 23.6 [place] % (Auto) 12.0 H Eos % (Auto) 2.5 Baso % (Auto) 0.7 Neut # (Auto) 5.1 Lymph # (Auto) 1.9 [place] # (Auto) 1.0 H Eos # (Auto) 0.2 Baso # (Auto) 0.1 WBC Differential . Differential Comment Auto diff final Sodium 142 Potassium 4.3 Chloride 108 H Carbon Dioxide 24.5 Anion Gap 10 BUN 22 H Creatinine 1.54 H Estimated GFR 47 L Random Glucose 92 Calcium 8.0 L D - Imaging Abdomen/Pelvis CT 01/13/18 23:25 CONCLUSION: 1. 8 x 16 mm left UPJ calculus with moderate left-sided hydronephrosis. 2. No additional radiopaque renal calculi. 3. Mild sigmoid diverticulosis. 4. Enlarged prostate. Assessment and Plan - Plan 57-year-old male with history of CAD status post stents x2, hyperlipidemia, hypertension, presents with a 1 day history of left-sided flank pain Acute nephrolithiasis: With intractable left groin/flank pain. -CT abdomen/pelvis significant for 8 x 16 mm left UPJ calculus with moderate left-sided hydronephrosis; enlarged prostate -UA without signs of obvious infection -Start on Flomax 0.4 mg daily -Continue IVF hydration -Pain control with Tylenol, IV Toradol, and IV morphine -Urology consulted, plans for cystoscopy with stent insertion today, and will need lithotripsy in the future Coronary artery disease: s/p stent placement x2 [place] [address] Whitney -Continue patient's Brilinta/aspirin, statin, and metoprolol -Monitor on telemetry Hypertension: Chronic -Continue home metoprolol (with hold parameters) -Monitor BP, adjust antihypertensives as needed Hyperlipidemia: Chronic -Continue patient's statin DVT prophylaxis: Teds/SCDs, on aspirin/Plavix, avoiding further chemical prophylaxis with upcoming procedure Discharge Planning: Going for ureteral stent placement today. Further disposition to follow. Await clearance from urology following procedure.
[2018-01-14] MEDS ORDERED: Senna/Docusate Sodium 8.6/50 MG Tablet PO SCH (09:30)
[2018-01-14] MEDS: Sod Chloride 0.9% Inj 1,000 ML IV.CONT SCH (10:03)
[2018-01-14 12:09] VITALS: O2SAT 100
[2018-01-14] MEDS: Metoprolol Tartrate 50 MG Tablet PO SCH (12:30)
[2018-01-14] MEDS ORDERED: Lidocaine PF 1% Inj 5 ML Syringe OTHER ONE (13:49)
[2018-01-14] MEDS ORDERED: Iohexol Inj 350 MG/ML 100 ML Bottle (for RAD Diag) IVCONTRAST ONE (14:18)
--- NOTE | 2018-01-14 14:33 | P.OP ---
- Preoperative Diagnosis (1) Hydronephrosis concurrent with and due to calculi of kidney and ureter - Postoperative Diagnosis (1) Hydronephrosis concurrent with and due to calculi of kidney and ureter Date of procedure: 01/14/18 Procedure: Cystoscopy with left retrograde study and left double-J stent insertion Anesthesia: other (General LMA) Surgeon: Harjinder Flowers DO Estimated blood loss (mL): 0 Operation and Findings: 57-year-old male presented to the emergency room with left-sided flank pain. CT scan was performed demonstrating 1.7 cm UPJ stone with hydronephrosis causing obstruction. Decision made to bring the patient to the operating room to undergo cystoscopy with left retrograde study and left double-J stent insertion. Patient was brought to the operating room and identified by myself as Mario Bar. He was placed in dorsal lithotomy position, prepped and draped in sterile fashion, received preprocedure antibiotics and general LMA anesthesia was administered. 20 [place] cystoscope was inserted in the bladder and coaptating prosthetic lobes were identified. The left ureteral orifice was identified and a 5 [place] opening catheter was inserted in the left ureteral orifice without difficulty. Retrograde pyelogram demonstrated obstruction at the area of the UPJ on the left side. A 0.35 sensor wire was then passed through the open-ended catheter up into the kidney. A 6 [place] 24 cm Cook urologic stent was then placed over the wire with good curl in the kidney and the bladder. The bladder was evacuated and he was awoken and extubated transferred recovery in stable condition. He will undergo left extracorporeal shockwave lithotripsy in the future and will need to hold his anticoagulation medication prior to the procedure.
[2018-01-14] MEDS ORDERED: fentaNYL Citrate Inj 100 MCG/2 ML Ampul ONE (14:38)
[2018-01-14 16:47] VITALS: BP 148/85; PULSE 67; TEMP 97.9
[2018-01-14] MEDS ORDERED: Metoprolol Tartrate 25 MG Tablet PO SCH (21:00)
== END 2018-01-14 16:54 | disposition home or self-care (01) ==
LOC: NEDA 19:28 → NEPD 19:28 → NEPFCDU 01-13 04:39 → N04 01-14 14:41
PROVIDERS: ADMIT Hospitalist; ATTEND Hospitalist